=== PATIENT | female | born 1980 | race Caucasian/White ===

== ENCOUNTER 2021-09-09 16:30 | Emergency (ER) | payer OTHER ==
--- NOTE | 2021-09-09 17:04 | XRAY ---
Indication: Pain following fall. Comparison: None 3 view left ankle demonstrates small posterior/plantar heel spurs. No other bony, articular, or soft tissue abnormalities.
--- NOTE | 2021-09-09 17:04 | XRAY ---
Indication: Pain following fall. Comparison: None 3 nonweightbearing views left foot demonstrates small heel spurs. No other bony, articular, or soft tissue abnormalities.
[2021-09-09] MEDS ORDERED: TORAdol 30 mg Injection ONE (17:21)
[2021-09-09] MEDS: TORAdol 30 mg Injection IM ONE (17:22)
[2021-09-09 17:27] VITALS: BP 134/91; PULSE 98; O2SAT 98
--- NOTE | 2021-09-09 17:37 | ERPHSYRPT ---
- History of Present Illness Time Seen by Provider: 09/09/21 16:32 Source: patient Exam Limitations: no limitations Patient Subjective Stated Complaint: Pt stated that she went to step off of a round bar stool that she was standing on and landed on her left foot wrong and injured it Triage Nursing Assessment: Pt was brought to the ER by her boyfriend, hypertensive, rates pain as 7/10, pulses normal, no bruising noted, some swelling, pain radiates from the lateral side of foot to the top of it to the lateral side of the ankle, denies any other injuries Physician History: 41-year-old female presented in the ER with chief complaint of left foot and ankle pain after she fell off of a barstool around 1 AM today and twisted her left ankle/foot. Since then she is having mild to moderate dull aching to sharp pain with ambulation and better with resting with associated swelling in the left lateral ankle and foot. Denies injury anywhere else. Method of Injury: fell, twisted Occurred: this morning Quality: sharpness Severity of Pain-Max: moderate Severity of Pain-Current: moderate Lower Extremities Pain: foot: left, ankle: left Modifying Factors: Improves With: immobilization, rest. 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 - Vaccination Dates Date of 2cond Vaccination (if applicable): 01/09/2021 - Review of Systems Constitutional: No Symptoms Ears, Nose, & Throat: No Symptoms Respiratory: No Symptoms Cardiac: No Symptoms Abdominal/Gastrointestinal: No Symptoms Genitourinary Symptoms: No Symptoms Musculoskeletal: Fall, Injury, Joint Pain, Joint Swelling Skin: No Symptoms Neurological: No Symptoms Psychological: No Symptoms Endocrine: No Symptoms Hematologic/Lymphatic: No Symptoms Immunological/Allergic: No Symptoms - Past Medical History Pertinent Past Medical History: Yes Neurological History: Migraines, Seizures GI Medical History: Crohns Disease Psycho-Social History: Anxiety, Depression Other Medical History: allergies, scoliosis - Past Surgical History Past Surgical History: Yes Female Surgical History: Hysterectomy Other Surgical History: sinus, elbow, right wrist, breast reduction - Social History Smoking Status: Never smoker Exposure to second hand smoke: Yes Drug Use: none Patient Lives Alone: No - Female History Hx Now: No - Nursing Vital Signs Nursing Vital Signs: Initial Vital Signs Temperature 97.3 F 09/09/21 16:31 Pulse Rate 97 H 09/09/21 16:31 Blood Pressure 146/95 09/09/21 16:31 O2 Sat by Pulse Oximetry 96 09/09/21 16:31 Pain Scale Pain Intensity 1 - Physical Exam General Appearance: no apparent distress, alert Eyes, Ears, Nose, Throat Exam: normal ENT inspection Neck Exam: normal inspection Cardiovascular/Respiratory Exam: normal breath sounds, regular rate/rhythm Gastrointestinal/Abdominal Exam: non-tender, soft Back Exam: normal inspection, normal range of motion Legs Exam: bilateral leg: non-tender, normal inspection, normal range of motion, no evidence of injury Knees Exam: bilateral knee: non-tender, normal inspection, normal range of motion Ankle Exam: right ankle: non-tender, normal inspection, normal range of motion, no evidence of injury, left ankle: bone tenderness (Lateral malleolus), pain, soft tissue tenderness, swelling Foot Exam: right foot: non-tender, normal inspection, normal range of motion, no evidence of injury, left foot: pain, soft tissue tenderness (Lateral foot), swelling Neuro/Tendon Exam: normal sensation, normal motor functions, normal tendon functions Mental Status Exam: alert, 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, cooperative Skin Exam: normal color SpO2 Interpretation: normal SpO2: 98 O2 Delivery: Room Air Ordered Tests: Active Orders 24 hr Category Date Time Status ANKLE (3 VIEWS) Stat Exams 09/09/21 16:36 Completed FOOT (MINIMUM 3 VIEWS) Stat Exams 09/09/21 16:37 Completed Medication Summary Discontinued Medications Generic Name Dose Route Start Last Admin Trade Name Freq PRN Reason Stop Dose Admin Ketorolac Tromethamine 30 mg 09/09/21 17:20 09/09/21 17:22 Ketorolac Tromethamine 30 Mg/Ml Inj IM 09/09/21 17:21 30 mg STAT ONE Administration Ketorolac Tromethamine Confirm 09/09/21 17:21 Ketorolac Tromethamine 30 Mg/Ml Inj Administered 09/09/21 17:22 Dose 30 mg .ROUTE .STK-MED ONE - Progress Progress: pain not gone completely Progress Note: 09/09/21 17:35 Given Toradol for symptomatic relief. Ruled out fracture dislocation. I believe she has a ankle sprain, given Aircast, weightbearing as tolerated and outpatient podiatry/Ortho follow-up. Discussed signs symptoms of worsening needing return to ER which she seems understanding. Counseled pt/family regarding: diagnosis, need for follow-up, rad results - Departure Departure Disposition: Home Clinical Impression: Left ankle sprain Qualifiers: Encounter type: initial encounter Involved ligament of ankle: unspecified ligament Qualified Code(s): S93.402A - Sprain of unspecified ligament of left ankle, initial encounter Condition: Critical Care Time: No Referrals: DOCTOR,NO FAMILY [Primary Care Provider] - Follow up/PCP as directed TESS GAMEZ DPM [ACTIVE STAFF] - Follow up/PCP as directed (Call tomorrow for reevaluation) Instructions: Foot Sprain (DC), Ankle Sprain (DC) Additional Instructions: Take Tylenol/ibuprofen as needed. Weightbearing as tolerated. Avoid exertional activities. Apply intermittent ice. Keep it elevated. Follow-up with the specialist for reevaluation. Or difficulty weightbearing. Prescriptions: Ibuprofen 600 mg PO Q6HPRN PRN 10 Days #20 tablet PRN Reason: Pain
== END 2021-09-09 17:59 | disposition home or self-care (01) ==
LOC: ED 16:30
DX: S93.402A Sprain of unspecified ligament of left ankle, initial encounter (principal); W07.XXXA Fall from chair, initial encounter; M79.672 Pain in left foot
CPT/HCPCS: 73610; 73630; 96372; 99283; J1885

== ENCOUNTER 2022-02-07 08:54 | Emergency (ER) | payer OTHER ==
[2022-02-07 09:07] VITALS: PULSE 99; O2SAT 97
[2022-02-07 09:11] VITALS: BP 128/80
--- NOTE | 2022-02-07 09:22 | ERPHSYRPT ---
- History of Present Illness Time Seen by Provider: 02/07/22 09:17 Source: patient Exam Limitations: no limitations Patient Subjective Stated Complaint: Right knee pain Triage Nursing Assessment: Patient ambulated back to ED and transferred self to bed. Patient A+ O X 3. Patient's skin pink, warm and dry. Patient complains of right knee pain after squatting 5 days ago and hearing a "pop". Patient complains of constant aching pain with intermittent sharp pain when ambulating 6/10. No bruising or visible injuries noted. Physician History: Patient complains of right knee pain after squatting 5 days ago and hearing a "pop". Patient complains of constant aching pain with intermittent sharp pain when ambulating 6/10. No bruising or visible injuries noted. Method of Injury: other (while squating) Occurred: just prior to arrival Quality: intermittent Severity of Pain-Max: mild Severity of Pain-Current: mild Lower Extremities Pain: knee: right Modifying Factors: Improves With: rest Associated Symptoms: none Allergies/Adverse Reactions: Penicillins Allergy (Verified 02/07/22 09:01) Sulfa (Sulfonamide Antibiotics) Allergy (Verified 02/07/22 09:01) Home Medications: No Reportable Medications [No Reported Medications] 02/07/22 [History] Hx Tetanus, Diphtheria Vaccination/Date Given: No (2017) Hx Influenza Vaccination/Date Given: Yes Hx Pneumococcal Vaccination/Date Given: No Immunizations Up to Date: Yes Travel Risk - International Travel Have you traveled outside of the country in past 3 weeks: No - Coronavirus Screening Are you exhibiting any of the following symptoms?: No Close contact with a COVID-19 positive Pt in past 14-21 Days: No - Vaccine Status Have you recieved a Covid-19 vaccination: Yes Rn Cvicu: Moderna - Vaccination Dates Date of 2cond Vaccination (if applicable): 01/09/2021 - Review of Systems Constitutional: No Fever, No Chills Eyes: No Symptoms Ears, Nose, & Throat: No Symptoms Respiratory: No Cough, No Dyspnea Cardiac: No Chest Pain, No Edema, No Syncope Abdominal/Gastrointestinal: No Abdominal Pain, No Nausea, No Vomiting, No Diarrhea Genitourinary Symptoms: No Dysuria Musculoskeletal: Other (while squating felt like knee cap got dislocated), No Back Pain, No Neck Pain Skin: No Rash Neurological: No Dizziness, No Focal Weakness, No Sensory Changes Psychological: No Symptoms Endocrine: No Symptoms All Other Systems: Reviewed and Negative - Past Medical History Pertinent Past Medical History: Yes Neurological History: Migraines, Seizures Cardiac History: No Pertinent History Respiratory History: Asthma Endocrine Medical History: No Pertinent History Musculoskeletal History: Arthritis GI Medical History: Crohns Disease Psycho-Social History: Anxiety, Depression Other Medical History: allergies, scoliosis. 2018 was last seizure - Past Surgical History Past Surgical History: Yes Female Surgical History: Hysterectomy Other Surgical History: sinus, elbow, right wrist, breast reduction - Social History Smoking Status: Never smoker Exposure to second hand smoke: No Drug Use: none Patient Lives Alone: No - Female History Hx Last Menstrual Period: hysterectomy Hx Now: No - Nursing Vital Signs Nursing Vital Signs: Initial Vital Signs Temperature 96.2 F 02/07/22 09:02 Pulse Rate 99 H 02/07/22 09:02 Respiratory Rate 18 02/07/22 09:02 Blood Pressure 128/80 02/07/22 09:02 O2 Sat by Pulse Oximetry 97 02/07/22 09:02 Pain Scale Pain Intensity 6 - Physical Exam General Appearance: alert Eyes, Ears, Nose, Throat Exam: moist mucous membranes Neck Exam: non-tender, supple Cardiovascular/Respiratory Exam: chest non-tender, normal breath sounds, regular rate/rhythm, no respiratory distress Gastrointestinal/Abdominal Exam: non-tender, guarding Back Exam: normal inspection, No vertebral tenderness Hips Exam: bilateral: non-tender Legs Exam: bilateral leg: non-tender Knees Exam: right knee: soft tissue tenderness, bilateral knee: non-tender Ankle Exam: bilateral ankle: non-tender Foot Exam: bilateral foot: non-tender DTR - Lower Extremities Exam: knee (R): 2+, knee (L): 2+, ankle (R): 2+, ankle (L): 2+ Neuro/Tendon Exam: normal sensation, normal motor functions Mental Status Exam: alert, 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, cooperative Skin Exam: normal color, warm, dry SpO2 Interpretation: normal SpO2: 97 O2 Delivery: Room Air - Course Nursing assessment & vital signs reviewed: Yes - Radiology Exams Knee X-ray Interpretation: Reviewed by me, Negative, No Fracture, No Subluxation Ordered Tests: Active Orders 24 hr Category Date Time Status KNEE (3 VIEWS) Stat Exams 02/07/22 09:00 Taken - Progress Progress: improved, pain not gone completely Counseled pt/family regarding: diagnosis, need for follow-up, rad results - Departure Departure Disposition: Home Clinical Impression: Patellar clunk syndrome of right knee Patellar luxation Qualifiers: Encounter type: initial encounter Laterality: right Qualified Code(s): S83.004A - Unspecified dislocation of right patella, initial encounter Condition: Stable Critical Care Time: No Referrals: LUC HARTMANN FNP [NON-STAFF Y W/O PRIVILEGES] - Follow up/PCP as directed Instructions: Knee Pain (DC) Additional Instructions: Discharge/Care Plan KALE SOLOMON was seen on 02/07/22 in the Emergency Room. The patient was counseled regarding Diagnosis,Lab results, Imaging studies, need for follow up and when to return to the Emergency Room. Prescriptions given: Discharge Note I have spoken with the patient and/or caregivers. I have explained the patient's condition, diagnosis and treatment plan based on the information available to me at this time. I have answered the patient's and/or caregiver's questions and addressed any concerns. The patient and/or caregivers have as good understanding of the patient's diagnosis, condition and treatment plan as can be expected at this point. The vital signs have been stable. The patient's condition is stable and appropriate for discharge from the emergency department. The patient will pursue further outpatient evaluation with the primary care physician or other designated or consulting physician as outlined in the discharge instructions. The patient and/or caregivers are agreeable to this plan of care and follow-up instructions have been explained in detail. The patient and/or caregivers have received these instruction. The patient/and or caregivers are aware that any significant change in condition or worsening of symptoms should prompt an immediate return to this or the closest emergency department or call 911. KALE SOLOMON was seen on 02/07/22 n the Emergency Room. At that time you were treated for an emergent condition, during your visit Laboratory, Radiology and/or other procedures may have been ordered. It is very important that you follow-up with your Primary Care Physician MARCO MFCARLANE within the next 24- 48 hours to review your Emergency Room visit and the final results of testing that was ordered. Some test results such as Urine Cultures, Blood Cultures, and other cultures if ordered will not be finalized for 24-48 hours. If you do not have a Primary Care Provider please call the medical records department at [phone] ext [phone] to obtain a copy of your results or you may sign into our patient portal to obtain these results by visiting us @ [email or web address] and completing the following steps: 1. Click on the Patient Portal link 2. Click the Patient Self Enrollment Link to complete the enrollment form and entering your 3. Once the enrollment form is completed you will receive an email with a temporary ID and password at the email address you provided. 4. Next choose a user name and password. Your user name must be at least 4 characters long and your password must be at least 4 characters long. 5. Choose a security question from the list and provide your answer to the question. If you already have signed into the Health Portal you may access your Health Care Information 12/04 by the following steps: 1. Login to our website @ [email or web address] 2. Enter your original user name and password. FAQS The [facility] Portal is an online tool that contains your Lab Results, Radiology Reports, Visit History, Discharge Instructions and Health Summary Lab and Radiology Results will not be available for 72 hours on the portal. The Portal is a secure site, passwords are encryted and URLs are re-written so they cannot be copied and pasted. You and authorized family members are the only ones who can access your Portal. Also there is a timeout feature that protects your information if you leave the Portal page open. If you have technical difficulty please use the Contact Us link on the page this will allow you to submit any questions you have regarding the Portal or you may contact the Medical Record Department at [phone]. Please take Tylenol 500 mg and ibuprofen 400 mg 3 times a day for next 2 to 3 days for the pain. Please wear knee brace over right knee for the next 2 to 3 days. If your symptoms get worse or if you feel your knee is giving out call your primary care physician for further work-up.
--- NOTE | 2022-02-07 19:21 | XRAY ---
Indication: Pain and grinding. "Pop in knee" 5 days ago. Comparison: None 3 view right knee demonstrates minimal medial joint space narrowing and small nonspecific effusion. No other bony, articular, or soft tissue abnormalities.
== END 2022-02-07 09:30 | disposition home or self-care (01) ==
LOC: ED 08:54
DX: M25.861 Other specified joint disorders, right knee (principal); S83.004A Unspecified dislocation of right patella, initial encounter; X50.0XXA Overexertion from strenuous movement or load, initial encounter; M25.561 Pain in right knee
CPT/HCPCS: 73562; 99283

== ENCOUNTER 2022-04-14 02:27 | Emergency (ER) | payer OTHER ==
--- NOTE | 2022-04-14 02:31 | ERPHSYRPT ---
- History of Present Illness Time Seen by Provider: 04/14/22 02:31 Source: patient Exam Limitations: no limitations Physician History: This is a 41-year-old white female who has asthma and has an inhaler at home and presents with a cough that has been present for approximately 5 days. However, this morning, whenever she is at work malfunctioned and dust particles went into the air and the patient had coughing episode. She states that she has had a productive cough recently. She denies fever. She has no chest pain. She had negative COVID test on prior to this evaluation. Her employer requires her to be evaluated, received a note from work and also repeat a COVID test. Timing/Duration: today Activities at Onset: none Severity of Dyspnea-Max: moderate Severity of Dyspnea-Current: mild Possible Cause: occasional episodes, irritant gases exposure Modifying Factors: Improves With: coughing Associated Symptoms: cough, No chest pain/discomfort, No wheezing, No hemoptysis Allergies/Adverse Reactions: Penicillins Allergy (Verified 04/14/22 02:49) Sulfa (Sulfonamide Antibiotics) Allergy (Verified 04/14/22 02:49) Hx Tetanus, Diphtheria Vaccination/Date Given: No (2017) Hx Influenza Vaccination/Date Given: Yes Hx Pneumococcal Vaccination/Date Given: No Travel Risk - International Travel Have you traveled outside of the country in past 3 weeks: No - Coronavirus Screening Are you exhibiting any of the following symptoms?: No Symptoms: Cough: New Onset - Vaccine Status Have you recieved a Covid-19 vaccination: Yes 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 - Vaccination Dates Date of 2cond Vaccination (if applicable): 01/09/2021 - Review of Systems Constitutional: No Symptoms Eyes: No Symptoms Ears, Nose, & Throat: No Symptoms Respiratory: Cough Cardiac: No Symptoms Abdominal/Gastrointestinal: No Symptoms Genitourinary Symptoms: No Symptoms Musculoskeletal: No Symptoms Skin: No Symptoms Neurological: No Symptoms Psychological: No Symptoms Endocrine: No Symptoms Hematologic/Lymphatic: No Symptoms Immunological/Allergic: No Symptoms All Other Systems: Reviewed and Negative - Past Medical History Pertinent Past Medical History: Yes Neurological History: Migraines, Seizures Cardiac History: No Pertinent History Respiratory History: Asthma Endocrine Medical History: No Pertinent History Musculoskeletal History: Arthritis GI Medical History: Crohns Disease Psycho-Social History: Anxiety, Depression Other Medical History: allergies, scoliosis. 2018 was last seizure - Past Surgical History Past Surgical History: Yes Female Surgical History: Hysterectomy Other Surgical History: sinus, elbow, right wrist, breast reduction - Social History Smoking Status: Never smoker Exposure to second hand smoke: No Drug Use: none Patient Lives Alone: No - Nursing Vital Signs Nursing Vital Signs: Initial Vital Signs Temperature 97.8 F 04/14/22 02:35 Pulse Rate 92 H 04/14/22 02:35 Respiratory Rate 18 04/14/22 02:35 Blood Pressure 117/79 04/14/22 02:35 O2 Sat by Pulse Oximetry 95 04/14/22 02:35 Pain Scale Pain Intensity 4 - Physical Exam General Appearance: no apparent distress, alert, anxiety Eye Exam: PERRL/EOMI, eyes nml inspection Ears, Nose, Throat Exam: hearing grossly normal, normal ENT inspection, normal pharynx Neck Exam: normal inspection, non-tender, supple, full range of motion Respiratory Exam: normal breath sounds, lungs clear, airway intact, No chest tenderness, No respiratory distress Cardiovascular/Chest Exam: normal heart sounds, regular rate/rhythm Abdominal/Gastrointestinal Exam: soft, normal bowel sounds, No tenderness Rectal Exam: not done Extremity Exam: non-tender, normal range of motion, normal inspection, normal capillary refill, no calf tenderness, no pedal edema, pelvis stable Neurologic Exam: alert, 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, cooperative, 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 04/14/22 03:03 Medical decision making: This patient has had a cough for 5 days prior to this episode this morning. She states that her cough is productive. She does have albuterol inhaler at home. We will give her a dose of Solu-Medrol here in the emergency department and if not allergic, will give her an intramuscular dose of Rocephin followed by outpatient steroids and Z-Gerald. We will perform a COVID test prior to her discharge. Blood Culture(s) Obtained: No Antibiotics given: Yes Counseled pt/family regarding: lab results, diagnosis, need for follow-up, rad results - Departure Departure Disposition: Home Clinical Impression: Bronchitis due to chemical, Cough productive of purulent sputum Condition: Stable Critical Care Time: No Referrals: MARCO MCFARLANE [Primary Care Provider] - Follow up/PCP as directed Additional Instructions: Drink plenty of fluids. Use your inhaler every 4 hours while awake for the next 48 hours. Take your medication as prescribed. Follow-up with your primary prescribing provider for further evaluation and management. Prescriptions: Prednisone 10 mg [Deltasone 10 mg] 10 mg PO TID #12 tablet Azithromycin 250 mg [Zithromax 250 MG TABLET] 250 mg PO ZPACK #6 tablet
[2022-04-14] MEDS ORDERED: Rocephin 1000 MG INJ IM ONE (03:07)
[2022-04-14] MEDS ORDERED: solu-MEDROL 125 MG, Sterile H2O 10 ml 2 ML IM ONE ×2 (03:07)
[2022-04-14] MEDS ORDERED: Rocephin 1000 MG INJ ONE (03:24)
[2022-04-14] MEDS ORDERED: solu-MEDROL ONE (03:24)
[2022-04-14] MEDS ORDERED: Sterile H2O 10 ml IJ ONE (03:24)
[2022-04-14] MEDS ORDERED: XYLOCAINE 1% HCL 20 ML MDV ONE (03:25)
[2022-04-14 03:35] VITALS: O2SAT 94
[2022-04-14 03:54] LABS: INFLUENZA A NEGATIVE (NEGATIVE); INFLUENZA B NEGATIVE (NEGATIVE); RESPIRATORY SYNCTIAL VIRUS NEGATIVE (Negative); SARS-CoV-2 Xpert Express NEGATIVE (NEGATIVE)
[2022-04-14 04:31] VITALS: BP 120/85; PULSE 79
--- NOTE | 2022-04-15 00:22 | XRAY ---
Exam: AP upright portable chest film from 04/14/2022. Comparison: AP upright portable chest film from 04/08/2022. Indication: Cough; dust exposure at work. Findings: The heart size and contour are normal. The kami and mediastinal structures appear unremarkable. The lungs are well inflated. No air space infiltrates, vascular congestion, pneumothorax, or pleural fluid is seen. No acute osseous process is seen. Impression: 1. No air space infiltrates or other acute cardiopulmonary disease is seen, no change from 04/08/2022.
== END 2022-04-14 04:42 | disposition home or self-care (01) ==
LOC: ED 02:27
DX: J68.0 Bronchitis and pneumonitis due to chemicals, gases, fumes and vapors (principal); R05.8 Other specified cough; Z79.52 Long term (current) use of systemic steroids
CPT/HCPCS: 0241U; 71045; 96372; 99283; J0696; J2930

== ENCOUNTER 2022-05-26 15:19 | Emergency (ER) | payer OTHER ==
[2022-05-26] MEDS ORDERED: Sodium Chloride 0.9% 1000 ML 1,000 ML IV SCH (16:00)
[2022-05-26 16:19] LABS: Absolute Neutrophil Ct (ANC) 4.68 x10^3/uL (1.4-6.9); Basophil (Absolute #) 0.05 x10^3/uL (0-0.4); Eosinophil % 1.1 % (0.00-5.0); Eosinophil (Absolute #) 0.09 x10^3/uL (0-0.5); Hematocrit 39.5 % (35-47); Hemoglobin 12.4 g/dL (12.0-16.0); Lymphocyte (Absolute #) 3.01 x10^3/uL (1.0-4.6); Lymphocytes % 35.4 % (24.0-44.0); Mean Cell Volume 94.5 fL (78-100); Mean Corpuscular Hemoglobin 29.7 pg (26-32); Mean Corpuscular Hgb Concent. 31.4 g/dL (32-36); Monocyte (Absolute #) 0.62 x10^3/uL (0.0-1.3); Monocytes % 7.3 % (0.0-12.0); Platelet Count 296 x10^3/uL (150-450); Red Blood Count 4.18 x10^6/uL (4.1-5.4); Red Cell Distribution Width 13.7 % (11.5-14.0); White Blood Count 8.5 x10^3/uL (4.0-10.5)
[2022-05-26] MEDS ORDERED: Sodium Chloride 0.9% 1000 ML 1,000 ML ONE (16:21)
--- NOTE | 2022-05-26 16:23 | XRAY ---
Indication: Dizziness. Low blood pressure. Current blood pressure medication. Multiple contiguous axial images obtained through the head without contrast. Comparison: None Normal appearing brain parenchyma, ventricles, and bony calvarium. Visualized paranasal sinuses and mastoid air cells are clear. Impression: Normal CT head without contrast exam.
[2022-05-26 16:30] LABS: Appearance CLEAR (CLEAR); Bilirubin NEGATIVE (NEGATIVE); Dipstick done @ ? MAIN LAB; Glucose NEGATIVE (NEGATIVE); Ketones NEGATIVE (NEGATIVE); Nitrite NEGATIVE (NEGATIVE); Protein,Urine Dip NEGATIVE (Negative); RBC NEGATIVE Ery/ul (0-5); Specific Gravity 1.015 (1.005-1.025); Urobilinogen 0.2 mg/dL (0-1)
[2022-05-26 16:34] LABS: ALBUMIN 4.1 g/dL (3.5-5.0); ALKALINE PHOSPHATASE 93 U/L (38-126); ANION GAP 10.8 MEQ/L (5-15); BLOOD UREA NITROGEN 14 mg/dL (7-17); CHLORIDE 107 mmol/L (98-107); Calcium 8.2 mg/dL (8.4-10.2); Carbon Dioxide 27 mmol/L (22-30); Creatinine 1 0.54 mg/dL (0.52-1.04); EST GLOMERULAR FILTRATION RATE > 60.0 ML/MIN; Potassium 4.6 mmol/L (3.5-5.1); SGOT/AST 41 U/L (14-36); SGPT/ALT 21 U/L (0-35); SODIUM 140 mmol/L (137-145); Total Protein 7.5 g/dL (6.3-8.2)
[2022-05-26 16:36] LABS: Glucose 101 mg/dL (74-106)
[2022-05-26 16:38] LABS: Bacteria RARE /HPF (NEGATIVE); Epithelial Cells RARE /HPF (FEW); Mucus SLIGHT /HPF (NEGATIVE); WBC 0-2 /HPF (0-5)
--- NOTE | 2022-05-26 16:39 | ERPHSYRPT ---
- History of Present Illness Time Seen by Provider: 05/26/22 15:40 Source: patient Patient Subjective Stated Complaint: Hypotension Triage Nursing Assessment: Patient ambulated back to ED and transferred self to bed. Patient A+O X3. Patient's skin pink, warm and dry. Patient complains of hypotension. Patient states she was laying on the bed watching a movie when she went to get up to use restroom and felt dizzy and that she was going to "Pass out". Patient took blood pressure and it was 91/56 and called PCP and was told to come to ER. Patient complains of dizziness, nausea and headache. Physician History: Patient a 41-year-old female presents to emergency department for evaluation of dizziness. Pay states she was at home lying down watching TV. Patient abruptly stood up out of her bed and became dizzy. Patient felt as though she was going to pass out. Patient checked her blood pressure was 91/56. Patient became concerned. She called with primary care doctor advised her to come to our ED. Patient states she still feels dizzy. No chest pain. No nausea or vomiting. No shortness of breath. Symptoms are mild in intensity. No specific worsening improving factors. Patient voices no other complaints or concerns at this time. Portions of this note were created with voice recognition technology. There may be grammatical, spelling, punctuation or sound alike errors Timing/Duration: today Severity: mild Modifying Factors: Improves With: nothing Associated Symptoms: denies symptoms Allergies/Adverse Reactions: Penicillins Allergy (Verified 05/26/22 15:30) Sulfa (Sulfonamide Antibiotics) Allergy (Verified 05/26/22 15:30) Hx Tetanus, Diphtheria Vaccination/Date Given: No (2017) Hx Influenza Vaccination/Date Given: Yes Hx Pneumococcal Vaccination/Date Given: No Immunizations Up to Date: Yes Travel Risk - International Travel Have you traveled outside of the country in past 3 weeks: No - Coronavirus Screening Are you exhibiting any of the following symptoms?: No Close contact with a COVID-19 positive Pt in past 14-21 Days: No - Vaccine Status Have you recieved a Covid-19 vaccination: Yes Manufacturer Representative: Moderna - Vaccination Dates Date of 2cond Vaccination (if applicable): 01/09/2021 - Review of Systems Constitutional: No Symptoms, No Fever, No Chills Eyes: No Symptoms Ears, Nose, & Throat: No Symptoms Respiratory: No Symptoms, No Cough, No Dyspnea Cardiac: No Symptoms, No Chest Pain, No Edema, No Syncope Abdominal/Gastrointestinal: No Symptoms, No Abdominal Pain, No Nausea, No Vomiting, No Diarrhea Genitourinary Symptoms: No Symptoms, No Dysuria Musculoskeletal: No Symptoms, No Back Pain, No Neck Pain Skin: No Symptoms, No Rash Neurological: No Symptoms, No Dizziness, No Focal Weakness, No Sensory Changes Psychological: No Symptoms Endocrine: No Symptoms Hematologic/Lymphatic: No Symptoms Immunological/Allergic: No Symptoms All Other Systems: Reviewed and Negative - Past Medical History Pertinent Past Medical History: Yes Neurological History: Migraines, Seizures Cardiac History: No Pertinent History Respiratory History: Asthma Endocrine Medical History: No Pertinent History Musculoskeletal History: Arthritis GI Medical History: Crohns Disease Psycho-Social History: Anxiety, Depression Other Medical History: allergies, scoliosis. 2018 was last seizure - Past Surgical History Past Surgical History: Yes Female Surgical History: Hysterectomy Other Surgical History: sinus, elbow, right wrist, breast reduction - Social History Smoking Status: Never smoker Exposure to second hand smoke: No Drug Use: none Patient Lives Alone: No - Female History Hx Last Menstrual Period: 2007 hysterectomy Hx Now: No - Nursing Vital Signs Nursing Vital Signs: Initial Vital Signs Temperature 97.6 F 05/26/22 15:32 Pulse Rate 83 05/26/22 15:32 Respiratory Rate 18 05/26/22 15:32 Blood Pressure 133/89 05/26/22 15:32 O2 Sat by Pulse Oximetry 98 05/26/22 15:32 Pain Scale Pain Intensity 0 - Physical Exam General Appearance: no apparent distress, alert Eye Exam: PERRL/EOMI, eyes nml inspection Ears, Nose, Throat Exam: normal ENT inspection, TMs normal, pharynx normal, moist mucous membranes Neck Exam: normal inspection, non-tender, supple, full range of motion Respiratory Exam: normal breath sounds, lungs clear, airway intact, No respiratory distress Cardiovascular Exam: regular rate/rhythm, normal heart sounds, normal peripheral pulses Gastrointestinal/Abdomen Exam: soft, normal bowel sounds, No tenderness, No mass Back Exam: normal inspection, normal range of motion, No CVA tenderness, No vertebral tenderness Extremity Exam: normal inspection, normal range of motion, pelvis stable Neurologic Exam: alert, 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, cooperative, normal mood/affect, nml cerebellar function, nml station & gait, sensation nml, No motor deficits Skin Exam: normal color, warm, dry, No rash Lymphatic Exam: No adenopathy SpO2 Interpretation: normal SpO2: 96 O2 Delivery: Room Air - Course Nursing assessment & vital signs reviewed: Yes EKG Interpreted by Me: RATE (81), Sinus Rhythm, NORMAL AXIS, NORMAL INTERVALS - CT Exams Head CT Interpretation: Tele-radiologist Report (CT head negative for acute intracranial pathology.) Ordered Tests: Active Orders 24 hr Category Date Time Status [employer] STAT Care 05/26/22 15:57 Active EKG-ER Only STAT Care 05/26/22 15:56 Active IV Insertion STAT Care 05/26/22 15:56 Active Pulse Oximetry (ED) STAT Care 05/26/22 15:56 Active Tele-Health Consult ROUTINE Cons 05/26/22 17:20 Active HEAD WITHOUT CONTRAST [CT] Stat Exams 05/26/22 15:59 Completed CBC W DIFF Stat Lab 05/26/22 16:10 Completed CMP Stat Lab 05/26/22 16:10 Completed HCG,QUALITATIVE URINE Stat Lab 05/26/22 16:06 Completed TROPONIN Q4H Lab 05/26/22 16:10 Completed TROPONIN Q4H Lab 05/26/22 20:00 Ordered TROPONIN Q4H Lab 05/27/22 00:00 Ordered UA W/RFX CULTURE Stat Lab 05/26/22 16:07 Completed Medication Summary Generic Name Dose Route Start Last Admin Trade Name Freq PRN Reason Stop Dose Admin Sodium Chloride 1,000 mls @ 75 mls/hr 05/26/22 16:00 05/26/22 16:22 Sodium Chloride 0.9% 1000 Ml IV 06/25/22 15:59 75 mls/hr .[id number] [facility] Administration Lab/Rad Data: Laboratory Result Diagrams 05/26/22 16:10 05/26/22 16:10 Laboratory Results 05/26/22 05/26/22 05/26/22 Range/Units 16:10 16:10 16:10 WBC 8.5 (4.0-10.5) x10^3/uL RBC 4.18 (4.1-5.4) x10^6/uL Hgb 12.4 (12.0-16.0) g/dL Hct 39.5 (35-47) % MCV 94.5 (78-100) fL MCH 29.7 (26-32) pg MCHC 31.4 L (32-36) g/dL RDW 13.7 (11.5-14.0) % Plt Count 296 (150-450) x10^3/uL MPV 9.0 (7.5-11.0) fL Gran % 55.0 (36.0-66.0) % Immature Gran % (Auto) 0.6 H (0.00-0.4) % Nucleat RBC Rel Count 0.0 (0.00-0.1) % Eos # (Auto) 0.09 (0-0.5) x10^3/uL Immature Gran # (Auto) 0.05 H (0.00-0.03) x10^3u/L Absolute Lymphs (auto) 3.01 (1.0-4.6) x10^3/uL Absolute Monos (auto) 0.62 (0.0-1.3) x10^3/uL Absolute Nucleated RBC 0.00 (0.00-0.01) x10^3u/L Lymphocytes % 35.4 (24.0-44.0) % Monocytes % 7.3 (0.0-12.0) % Eosinophils % 1.1 (0.00-5.0) % Basophils % 0.6 (0.0-0.4) % Absolute Granulocytes 4.68 (1.4-6.9) x10^3/uL Basophils # 0.05 (0-0.4) x10^3/uL Sodium 140 (137-145) mmol/L Potassium 4.6 (3.5-5.1) mmol/L Chloride 107 (98-107) mmol/L Carbon Dioxide 27 (22-30) mmol/L Anion Gap 10.8 (5-15) MEQ/L BUN 14 (7-17) mg/dL Creatinine 0.54 (0.52-1.04) mg/dL Estimated GFR > 60.0 ML/MIN Glucose 101 (74-106) mg/dL Calcium 8.2 L (8.4-10.2) mg/dL Total Bilirubin 0.60 (0.2-1.3) mg/dL AST 41 H (14-36) U/L ALT 21 (0-35) U/L Alkaline Phosphatase 93 (38-126) U/L Troponin I < 0.012 (0.000-0.034) ng/mL Serum Total Protein 7.5 (6.3-8.2) g/dL Albumin 4.1 (3.5-5.0) g/dL Urinalys Dipstick Clnc Urine Color (YELLOW) Urine Appearance (CLEAR) Urine pH (5-6) Ur Specific [place] (1.005-1.025) POC Urine Protein Conf (Negative) Urine Ketones (NEGATIVE) Urine Nitrite (NEGATIVE) Urine Bilirubin (NEGATIVE) Urine Urobilinogen (0-1) mg/dL Urine Leukocytes (NEGATIVE) Urine WBC (Auto) (0-5) /HPF Urine RBC (Auto) U Epithel Cells (Auto) (FEW) /HPF Urine Bacteria (Auto) (NEGATIVE) /HPF Urine RBC (0-5) Eduardo/ul Urine Mucus (Auto) (NEGATIVE) /HPF Ur Culture Indicated? Urine Glucose (NEGATIVE) mg/dL Urine HCG, Qual (Negative) 05/26/22 05/26/22 Range/Units 16:07 16:06 WBC (4.0-10.5) x10^3/uL RBC (4.1-5.4) x10^6/uL Hgb (12.0-16.0) g/dL Hct (35-47) % MCV (78-100) fL MCH (26-32) pg MCHC (32-36) g/dL RDW (11.5-14.0) % Plt Count (150-450) x10^3/uL MPV (7.5-11.0) fL Gran % (36.0-66.0) % Immature Gran % (Auto) (0.00-0.4) % Nucleat RBC Rel Count (0.00-0.1) % Eos # (Auto) (0-0.5) x10^3/uL Immature Gran # (Auto) (0.00-0.03) x10^3u/L Absolute Lymphs (auto) (1.0-4.6) x10^3/uL Absolute Monos (auto) (0.0-1.3) x10^3/uL Absolute Nucleated RBC (0.00-0.01) x10^3u/L Lymphocytes % (24.0-44.0) % Monocytes % (0.0-12.0) % Eosinophils % (0.00-5.0) % Basophils % (0.0-0.4) % Absolute Granulocytes (1.4-6.9) x10^3/uL Basophils # (0-0.4) x10^3/uL Sodium (137-145) mmol/L Potassium (3.5-5.1) mmol/L Chloride (98-107) mmol/L Carbon Dioxide (22-30) mmol/L Anion Gap (5-15) MEQ/L BUN (7-17) mg/dL Creatinine (0.52-1.04) mg/dL Estimated GFR ML/MIN Glucose (74-106) mg/dL Calcium (8.4-10.2) mg/dL Total Bilirubin (0.2-1.3) mg/dL AST (14-36) U/L ALT (0-35) U/L Alkaline Phosphatase (38-126) U/L Troponin I (0.000-0.034) ng/mL Serum Total Protein (6.3-8.2) g/dL Albumin (3.5-5.0) g/dL Urinalys Dipstick Clnc MAIN LAB Urine Color YELLOW (YELLOW) Urine Appearance CLEAR (CLEAR) Urine pH 7.0 (5-6) Ur Specific [place] 1.015 (1.005-1.025) POC Urine Protein Conf NEGATIVE (Negative) Urine Ketones NEGATIVE (NEGATIVE) Urine Nitrite NEGATIVE (NEGATIVE) Urine Bilirubin NEGATIVE (NEGATIVE) Urine Urobilinogen 0.2 (0-1) mg/dL Urine Leukocytes NEGATIVE (NEGATIVE) Urine WBC (Auto) 0-2 (0-5) /HPF Urine RBC (Auto) Not Reportable U Epithel Cells (Auto) RARE (FEW) /HPF Urine Bacteria (Auto) RARE (NEGATIVE) /HPF Urine RBC NEGATIVE (0-5) Eduardo/ul Urine Mucus (Auto) SLIGHT (NEGATIVE) /HPF Ur Culture Indicated? NO Urine Glucose NEGATIVE (NEGATIVE) mg/dL Urine HCG, Qual NEGATIVE (Negative) - Progress Progress: improved Progress Note: Patient currently feels well. Patient states she stood up quickly became dizzy check her blood pressure and it was somewhat low. Patient's symptoms appear to be consistent with an episode of orthostatic hypotension. IV fluids infused. She voices no other complaints or concerns at this time. Neurologic exam is normal. CT head negative. Telemetry neuro exam completed. Teleneurology advises discharge. No negation for further work-up at this time. Will discharge home. Patient's creatinine is somewhat elevated. Patient received a bolus of fluids in our ED. Patient requesting discharge. Patient agrees to follow-up with her primary care doctor within 48 hours for evaluation. Portions of this note were created with voice recognition technology. There may be grammatical, spelling, punctuation or sound alike errors 05/26/22 18:01 Counseled pt/family regarding: lab results, diagnosis, rad results - Departure Departure Disposition: Home Clinical Impression: Dizziness, Orthostatic hypotension Condition: Stable Critical Care Time: No Referrals: MARCO MCFARLANE [Primary Care Provider] - Follow up/PCP as directed Additional Instructions: Discharge/Care Plan JUANITOKALE MIGUEL was seen on 05/26/22 in the Emergency Room. The patient was counseled regarding Diagnosis,Lab results, Imaging studies, need for follow up and when to return to the Emergency Room. Prescriptions given: Discharge Note I have spoken with the patient and/or caregivers. I have explained the patient's condition, diagnosis and treatment plan based on the information available to me at this time. I have answered the patient's and/or caregiver's questions and addressed any concerns. The patient and/or caregivers have as good understanding of the patient's diagnosis, condition and treatment plan as can be expected at this point. The vital signs have been stable. The patient's condition is stable and appropriate for discharge from the emergency department. The patient will pursue further outpatient evaluation with the primary care physician or other designated or consulting physician as outlined in the discharge instructions. The patient and/or caregivers are agreeable to this plan of care and follow-up instructions have been explained in detail. The patient and/or caregivers have received these instruction. The patient/and or caregivers are aware that any significant change in condition or worsening of symptoms should prompt an immediate return to this or the closest emergency department or call 911.
[2022-05-26 16:51] LABS: Urine Cultured Indicated? NO
[2022-05-26 18:19] VITALS: BP 114/77; PULSE 76; O2SAT 99
== END 2022-05-26 18:20 | disposition home or self-care (01) ==
LOC: ED 15:19
DX: I95.1 Orthostatic hypotension (principal); R42 Dizziness and giddiness
CPT/HCPCS: 36000; 36415; 70450; 80053; 81015; 81025; 84484; 85025; 93005; 93041; 94760; 96360; 96361; 99284

== ENCOUNTER 2023-11-02 01:48 | Emergency (ER) | payer OTHER ==
[2023-11-02 02:01] VITALS: TEMP 96.7
[2023-11-02 02:11] LABS: HCG URINE TEST NEGATIVE (NEGATIVE)
[2023-11-02 02:14] LABS: Appearance Clear (Clear); Bacteria Rare /HPF (None Seen); Bilirubin Negative (Negative); Blood Negative (Negative); Epithelial Cells Moderate /HPF (None Seen); Glucose, Urine Negative (Negative); Hyaline Casts NONE SEEN /LPF (0-2); Ketones Negative (Negative); Leukocyte Esterase Trace (Negative); Nitrite Negative (Negative); Ph 6.5 (4.6-8.0); Protein,Urine Dip Negative (Negative); Specific Gravity 1.025 (1.005-1.030); Urobilinogen 0.2 mg/dL (0.2)
[2023-11-02 02:20] LABS: ADD URINE CULTURE? NO (NO)
[2023-11-02] MEDS ORDERED: TORAdol 30 mg Injection ONE (02:27)
[2023-11-02] MEDS: TORAdol 30 mg Injection IM ONE (02:30)
--- NOTE | 2023-11-02 02:31 | ERPHSYRPT ---
- History of Present Illness Time Seen by Provider: 11/02/23 02:20 Source: patient Patient Subjective Stated Complaint: back pain from neck down to an inch from my tailbone Triage Nursing Assessment: pt ambulated into ER without difficulty. Pt alert and oriented x4, cooperative. Pt c/o back pain which starts at the neck area and radiates down the spine to approx an inch from her tailbone. Pt has hx of scoliosis. Pt states, "I have to lift 50 pound boxes at my job about every 5 minutes as I work at [employer]". Pt works 12 hour shifts. Physician History: 43yo f presents for 1d progressively worsening back pain. 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 Pt states the pain starts in her lower cervical spine and radiates down her spine to her lower lumbar region. Pt reports some paraspinal muscle tenderness but most of her pain is located over the spine. Pt states she has hx of scoliosis and a seizure disorder for which she follows w/ a neurologist in [place], [place]. Pt reports taking advil yesterday w/ minimal relief, has not taken anything for pain today. Pt denies any numbness/tingling in the upper or lower extremities, denies any weakness in the extremities, denies any loss of bowel or bladder function. Pt denies cp, soa, n/v/abdominal pain, dysuria, constipation. Timing/Duration: yesterday (1d), gradual onset Method of Injury: lifting (repetitive lifting 35-50lbs) Quality: sharp Back Pain Location: C-spine, T-spine, lumbar spine Severity of Pain-Max: moderate Severity of Pain-Current: moderate Modifying Factors: Improves With: movement. Worsens With: cold therapy, pain medication Associated Symptoms: lower back pain, No fever, No chills, No sweating, No urinary incontinence, No loss of bowel control, No constipation, No nausea, No vomiting, No numbness in legs/feet, No weakness, No sensory/motor loss, No tingling in legs/feet Previous symptoms: same symptoms as today Body Map: 1 - midline spine TTP from c6-L1 Allergies/Adverse Reactions: Penicillins Allergy (Verified 11/02/23 02:13) Sulfa (Sulfonamide Antibiotics) Allergy (Verified 11/02/23 02:13) Home Medications: Fexofenadine HCl [Kassi Allergy] 1 tab PO DAILY 11/02/23 [History] Levetiracetam [Keppra] 1,500 mg PO BID 11/02/23 [History] Montelukast Sodium 10 mg [Singulair 10 MG] 10 mg PO DAILY 11/02/23 [History] risperiDONE [Risperidone] 1 mg PO BID 11/02/23 [History] Hx Tetanus, Diphtheria Vaccination/Date Given: Yes Hx Influenza Vaccination/Date Given: Yes Hx Pneumococcal Vaccination/Date Given: No Immunizations Up to Date: Yes Travel Risk - International Travel Have you traveled outside of the country in past 3 weeks: No - Coronavirus Screening Are you exhibiting any of the following symptoms?: No Close contact with a COVID-19 positive Pt in past 14-21 Days: No - Vaccine Status Have you recieved a Covid-19 vaccination: Yes Security Professionals: Moderna - Vaccination Dates Date of 2cond Vaccination (if applicable): . - Review of Systems Constitutional: No Symptoms Respiratory: No Symptoms Cardiac: No Symptoms Abdominal/Gastrointestinal: No Symptoms Genitourinary Symptoms: No Symptoms Musculoskeletal: Back Pain, Neck Pain, No Fall, No Injury Neurological: No Focal Weakness, No Gait Changes, No Sensory Changes - Past Medical History Pertinent Past Medical History: Yes Neurological History: Migraines, Seizures Cardiac History: No Pertinent History Respiratory History: Asthma Endocrine Medical History: No Pertinent History Musculoskeletal History: Arthritis GI Medical History: Crohns Disease Psycho-Social History: Anxiety, Attention Deficit Disorder, Depression Other Medical History: allergies, scoliosis. 2018 was last seizure - Past Surgical History Past Surgical History: Yes Female Surgical History: Hysterectomy Other Surgical History: sinus, left elbow, right wrist, breast reduction - Social History Smoking Status: Never smoker Exposure to second hand smoke: No Drug Use: none Patient Lives Alone: No - Female History Hx Now: No - Nursing Vital Signs Nursing Vital Signs: Initial Vital Signs Temperature 96.7 F 11/02/23 01:59 Pulse Rate 107 H 11/02/23 01:59 Respiratory Rate 20 11/02/23 01:59 Blood Pressure 143/103 11/02/23 01:59 O2 Sat by Pulse Oximetry 100 11/02/23 01:59 Pain Scale Pain Intensity [Posterior Back 6 ] Pain Intensity 2 - Physical Exam General Appearance: no apparent distress Neck Exam: supple, limited range of motion (2/2 pain), midline tenderness (sta rting C6) Respiratory Exam: normal breath sounds, airway intact, No respiratory distress Cardiovascular Exam: regular rate/rhythm, normal heart sounds Gastrointestinal Exam: soft, normal bowel sounds, No tenderness Back Exam: vertebral tenderness, other (midline tenderness C6-L1), No CVA tenderness, No muscle spasm Extremity Exam: normal inspection Neurologic Exam: alert, 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, cooperative, city editor II-XII nml as tested, normal mood/affect, sensation nml, No motor deficits, No sensory deficit, No motor weakness SpO2 Interpretation: normal SpO2: 99 O2 Delivery: Room Air Ordered Tests: Active Orders 24 hr Category Date Time Status CERVICAL SPINE WO CONTRAST [CT] Stat Exams 11/02/23 02:24 Completed LUMBAR SPINE W/O [CT] Stat Exams 11/02/23 02:24 Completed THORACIC SPINE W/O CONTRAST [CT] Stat Exams 11/02/23 02:24 Completed HCG QUALITATIVE, URINE Stat Lab 11/02/23 02:05 Completed UA W/RFX UR CULTURE Stat Lab 11/02/23 02:05 Completed Medication Summary Discontinued Medications Generic Name Dose Route Start Last Admin Trade Name Henriqueq PRN Reason Stop Dose Admin Ketorolac Tromethamine 30 mg 11/02/23 02:21 11/02/23 02:30 Ketorolac Tromethamine 30 Mg/Ml Inj IM 11/02/23 02:22 30 mg STAT ONE Administration Ketorolac Tromethamine Confirm 11/02/23 02:27 Ketorolac Tromethamine 30 Mg/Ml Inj Administered 11/02/23 02:28 Dose 30 mg .ROUTE .STK-MED ONE Lab/Rad Data: Laboratory Results 11/02/23 11/02/23 Range/Units 02:05 02:05 Urine Color Yellow (Yellow) Urine Appearance Clear (Clear) Urine pH 6.5 (4.6-8.0) Ur Specific [place] 1.025 (1.005-1.030) Urine Protein Negative (Negative) Urine Glucose (UA) Negative (Negative) mg/dL Urine Ketones Negative (Negative) Urine Blood Negative (Negative) Urine Nitrite Negative (Negative) Urine Bilirubin Negative (Negative) Urine Urobilinogen 0.2 (0.2) mg/dL Ur Leukocyte Esterase Trace A (Negative) U Hyaline Cast (Auto) NONE SEEN (0-2) /LPF Urine Microscopic RBC 3-5 (0-5) /HPF Urine Microscopic WBC 6-10 A (0-5) /HPF Ur Epithelial Cells Moderate A (None Seen) /HPF Urine Bacteria Rare A (None Seen) /HPF Urine Culture Reflexed NO (NO) Urine HCG, Qual NEGATIVE (NEGATIVE) - Progress Progress: improved Progress Note: 11/02/23 02:36 given IM toradol injection CT C,T,L spine ordered to evaluate for midline tenderness no hx of IV drug abuse, low suspicion for epidural abscess 11/02/23 04:30 Pt reports pain is much improved, resting comfortably discussed CT results w/ pt plan for dc home w/ outpatient f/u w/ her neurologist for MRI instructed to use ibuprofen/tylenol and ice/heat for pain relief will write pt work note through 11/05/23 return precautions discussed - loss of bowel/bladder continence, spiking fever, loss of strength/sensation in extremities CT results: T spine 1. No acute osseous abnormality noted in the thoracic spine. 2. Thoracic spondylosis with disc degenerative disease noted at T9/T10 and T11/T12 vertebral level, for further evaluation of disc disease, would recommend MRI. L spine 1. No acute pathology could be detected. 2. Spondylotic changes in the lumbar spine, with multilevel disc osteophyte complexes/bulge, as detailed above. MRI would be helpful for further evaluation. 3. Fracture of the transverse process of the L1 vertebra on the right side, likely old/chronic. C spine 1. No acute pathology noted. 2. Straightening of the cervical spine possibly due to muscle spasm. Counseled pt/family regarding: diagnosis, need for follow-up, rad results Medical Desision Making - Diagnostic Testing Diagnostic test were ordered, analyzed, and reviewed by me: Yes Radiological Interpretation: Reviewed by me, Teleradiologist Report - Risk of complications Low Risk: Low risk of morbidity from additional dx testing or treatment - Departure Departure Disposition: Home Clinical Impression: Cervical spondylosis, Lumbar spondylosis, Lumbar degenerative disc disease Lumbar transverse process fracture Qualifiers: Encounter type: initial encounter Fracture type: closed Qualified Code(s): S32.009A - Unspecified fracture of unspecified lumbar vertebra, initial encounter for closed fracture Condition: Stable Critical Care Time: No Referrals: GEORGE HOFF MD [Primary Care Provider] - Follow up/PCP as directed Additional Instructions: plan for dc home w/ outpatient f/u w/ her neurologist for MRI instructed to use ibuprofen/tylenol and ice/heat for pain relief will write pt work note through 11/05/23 return precautions discussed - loss of bowel/bladder continence, spiking fever, loss of strength/sensation in extremities CT results: T spine 1. No acute osseous abnormality noted in the thoracic spine. 2. Thoracic spondylosis with disc degenerative disease noted at T9/T10 and T11/T12 vertebral level, for further evaluation of disc disease, would recommend MRI. L spine 1. No acute pathology could be detected. 2. Spondylotic changes in the lumbar spine, with multilevel disc osteophyte complexes/bulge, as detailed above. MRI would be helpful for further evaluation. 3. Fracture of the transverse process of the L1 vertebra on the right side, likely old/chronic. C spine 1. No acute pathology noted. 2. Straightening of the cervical spine possibly due to muscle spasm.
[2023-11-02 03:26] VITALS: RESP 18
--- NOTE | 2023-11-02 03:33 | XRAY ---
CLINICAL HISTORY: back pain TECHNIQUE: Multiple axial CT sections were acquired through thoracic spine without intravenous contrast. In addition, coronal and sagittal reconstructions were also obtained. COMPARISON: None. FINDINGS: Straightening of dorsal point seen likely due to muscular spasm. Multilevel anterior marginal osteophytes are seen with vacuum phenomena. Schmorls nodes are also noted in the lower thoracic spine. The vertebral bodies appear normal. The articulating vertebral end plates present smooth margins. The intervertebral disc spaces are of normal height. The bony spinal canal appears of normal width. The prevertebral and paravertebral soft tissue show no significant abnormality. At T1/T2: No Bilateral neural foraminal narrowing or spinal canal stenosis noted. T2-3: No Bilateral neural foraminal narrowing or spinal canal stenosis noted. T3-4: No Bilateral neural foraminal narrowing or spinal canal stenosis noted. T4-5: No Bilateral neural foraminal narrowing or spinal canal stenosis noted. T5-6: No Bilateral neural foraminal narrowing or spinal canal stenosis noted. T6-7: No Bilateral neural foraminal narrowing or spinal canal stenosis noted. T7-8 No Bilateral neural foraminal narrowing or spinal canal stenosis noted. T8-9: No Bilateral neural foraminal narrowing or spinal canal stenosis noted. T9-10: Mild diffuse disc bulge causing indentation over anterior thecal sac without causing significant spinal canal narrowing or neural foraminal stenosis T10-11:No Bilateral neural foraminal narrowing or spinal canal stenosis noted. T11-12: There is a suggestion of Posterior disc osteophyte complex at the T11/T12 vertebral level Causing indentation of anterior spinal canal without causing significant spinal canal narrowing or neural foraminal stenosis IMPRESSION: 1. No acute osseous abnormality noted in the thoracic spine. 2. Thoracic spondylosis with disc degenerative disease noted at T9/T10 and T11/T12 vertebral level, for further evaluation of disc disease, would recommend MRI. Electronically Signed by: Carlito Sommer MD. (11/02/2023 03:30:19 EST)
--- NOTE | 2023-11-02 03:48 | XRAY ---
CLINICAL HISTORY: back pain TECHNIQUE: Thin axial CT of the cervical spine was performed with sagittal and coronal reconstructions without contrast administration. COMPARISON: None. FINDINGS: Straightening of the cervical spine possibly due to muscle spasm. No definite evidence of fractures or spondylolisthesis. The vertebral bodies are normal in height. No lytic or sclerotic bone lesion. The craniovertebral measures are unremarkable. Disc heights are maintained. Small anterior osteophytes are seen at C5 and C6. No uncovertebral hypertrophic changes. No paraspinal masses. Level by Level analysis: C2-C3: No bony central canal or neuroforaminal stenosis. C3-C4: No bony central canal or neuroforaminal stenosis. C4-C5: No bony central canal or neuroforaminal stenosis. C5-C6: No bony central canal or neuroforaminal stenosis. C6-C7: No bony central canal or neuroforaminal stenosis. C7-T1: No bony central canal or neuroforaminal stenosis. IMPRESSION: 1. No acute pathology noted. 2. Straightening of the cervical spine possibly due to muscle spasm. 3. Minimal cervical spondylosis. Electronically Signed by: Carlito Sommer MD. (11/02/2023 03:43:37 EST)
--- NOTE | 2023-11-02 04:22 | XRAY ---
CLINICAL HISTORY: back pain TECHNIQUE: Axial sections of CT lumbar spine were obtained without administration of intravenous contrast. Reformatted coronal and sagittal images were acquired. COMPARISON: None. FINDINGS: Lumbar lordosis is maintained. Mild curvature of the lumbar spine with convexity towards the left side. Vertebral body heights are intact. Reduced L1-L2 disc space. Spondylotic changes in the lumbar spine with multilevel osteophytes, endplate changes, facet arthropathic changes and ligamentum flavum hypertrophy. T11-T12: Disc osteophyte complex with left preponderance resulting in thecal sac indentation and mild left neural foraminal stenosis. L1-L2: No significant disc herniation canal stenosis or neural foraminal stenosis. L2-L3:No significant disc herniation canal stenosis or neural foraminal stenosis L3-L4: Mild asymmetric disc bulge with left preponderance resulting in thecal sac indentation and mild left neural foraminal narrowing. L4-L5: Left paracentral, foraminal and extraforaminal zone broad-based disc protrusion in combination with osteophyte formation [measuring approximately 6 mm] resulting in moderate to severe left neural foraminal narrowing with impingement of exiting nerve root. L5-S1 level: Mild central disc protrusion resulting in thecal sac indentation. No neural foraminal stenosis. Fracture of the transverse process of the L1 vertebra on the right side, likely old/chronic. Bone density appears reduced. There is a suggestion of mild subcutaneous edema in the subcutaneous soft tissues of the back. IMPRESSION: 1. No acute pathology could be detected. 2. Spondylotic changes in the lumbar spine, with multilevel disc osteophyte complexes/bulge, as detailed above. MRI would be helpful for further evaluation. 3. Fracture of the transverse process of the L1 vertebra on the right side, likely old/chronic. Electronically Signed by: Carlito Sommer MD. (11/02/2023 04:17:56 EST)
[2023-11-02 04:30] VITALS: BP 128/85; PULSE 88
[2023-11-02 04:36] VITALS: O2SAT 99
== END 2023-11-02 04:48 | disposition home or self-care (01) ==
LOC: ED 01:48
DX: M47.812 Spondylosis without myelopathy or radiculopathy, cervical region (principal); M47.816 Spondylosis without myelopathy or radiculopathy, lumbar region; M51.36 Other intervertebral disc degeneration, lumbar region; S32.009A Unspecified fracture of unspecified lumbar vertebra, initial encounter for closed fracture; X50.0XXA Overexertion from strenuous movement or load, initial encounter; X50.3XXA Overexertion from repetitive movements, initial encounter; Y92.63 Factory as the place of occurrence of the external cause; Y99.0 Civilian activity done for income or pay; Z79.899 Other long term (current) drug therapy
CPT/HCPCS: 72125; 72128; 72131; 81001; 81025; 96372; 99284; J1885

== ENCOUNTER 2023-12-17 11:08 | Emergency (ER) | payer OTHER ==
[2023-12-17] MEDS ORDERED: Hydromorphone 1 mg/ml Injection ONE (11:32)
[2023-12-17] MEDS: Hydromorphone 1 mg/ml Injection IM ONE (11:33)
[2023-12-17 11:35] VITALS: TEMP 98
[2023-12-17 11:55] LABS: Appearance Sl Cloudy* (Clear); Bilirubin Negative (Negative); Blood Negative (Negative); Glucose, Urine Negative (Negative); Ketones Negative (Negative); Leukocyte Esterase Trace (Negative); Nitrite Negative (Negative); Ph 5.5 (4.6-8.0); Protein,Urine Dip Negative (Negative); Specific Gravity >=1.030 (1.005-1.030); Urobilinogen 0.2 mg/dL (0.2)
[2023-12-17 12:00] LABS: ADD URINE CULTURE? YES (NO); Bacteria Moderate /HPF (None Seen); Epithelial Cells Many /HPF (None Seen)
--- NOTE | 2023-12-17 12:34 | XRAY ---
Indication: Pain. Multiple contiguous images obtained through the lumbar spine. Sagittal and coronal reformatted images obtained. Comparison: November 02, 2023 L4-L5 level demonstrates worsening large left lateral disc herniation. Herniated disc further effaces thecal sac occupying left epidural space. Worsening left foraminal stenosis. Stable minimal L5-S1 central disc bulge. Remaining levels negative for disc herniation or spinal canal stenosis. Facets are symmetric. Sagittal and coronal reformatted images again demonstrate normal lumbar alignment with vertebral body heights/disc spaces maintained. Visualized noncontrasted soft tissues unremarkable. Impression: 1. Worsening L4-L5 left lateral disc herniation with worsening left foraminal stenosis. 2. Stable minimal L5-S1 central disc bulge.
[2023-12-17 13:17] VITALS: BP 130/95; PULSE 79; RESP 21
--- NOTE | 2023-12-17 13:17 | ERPHSYRPT ---
- History of Present Illness Time Seen by Provider: 12/17/23 11:40 Source: patient Exam Limitations: no limitations Patient Subjective Stated Complaint: C/O left lower back pain. States, "I heard a pop in my butt cheek" yesterday evening when getting into bed. States pain radiates down into her left buttocks, left thigh and radiates upward into her mid left back. Triage Nursing Assessment: Patient ambulated back to ER. She is alert and oriented. No SOB. Skin tone normal. No bruising or skin alterations noted to reported areas of pain. Physician History: Patient presents with a complaint of severe lower back pain. She started yesterday evening when she rolled over in bed and felt a pop in the left lower back. She had no problems with the bowels or bladder she is currently in physical therapy for degenerative disc disease her pain is gotten worse since she heard the pop. Timing/Duration: yesterday Method of Injury: turning Quality: sharp Back Pain Location: lumbar spine Back Pain Radiation: upper legs Severity of Pain-Max: severe Severity of Pain-Current: moderate Modifying Factors: Improves With: movement Associated Symptoms: No urinary incontinence, No loss of bowel control Allergies/Adverse Reactions: Penicillins Allergy (Verified 12/17/23 11:19) Sulfa (Sulfonamide Antibiotics) Allergy (Verified 12/17/23 11:19) Home Medications: Fexofenadine HCl [Kassi Allergy] 1 tab PO DAILY 11/02/23 [History] Levetiracetam [Keppra] 1,500 mg PO BID 11/02/23 [History] Montelukast Sodium 10 mg [Singulair 10 MG] 10 mg PO DAILY 11/02/23 [History] risperiDONE [Risperidone] 1 mg PO BID 11/02/23 [History] Diclofenac Sodium 1 tab PO BID 12/17/23 [History] Hx Tetanus, Diphtheria Vaccination/Date Given: Yes Hx Influenza Vaccination/Date Given: Yes Hx Pneumococcal Vaccination/Date Given: Yes Immunizations Up to Date: Yes Travel Risk - International Travel Have you traveled outside of the country in past 3 weeks: No - Emerging Infectious Disease Are you exhibiting symptoms associated with any current EIDs: No - Review of Systems Constitutional: No Fever, No Chills Eyes: No Symptoms Ears, Nose, & Throat: No Symptoms Respiratory: No Cough, No Dyspnea Cardiac: No Chest Pain, No Edema, No Syncope Abdominal/Gastrointestinal: No Abdominal Pain, No Nausea, No Vomiting, No Diarrhea Genitourinary Symptoms: No Dysuria Musculoskeletal: Back Pain, No Neck Pain Skin: No Rash Neurological: Parasthesia, No Dizziness, No Focal Weakness, No Sensory Changes Psychological: No Symptoms Endocrine: No Symptoms All Other Systems: Reviewed and Negative - Past Medical History Pertinent Past Medical History: Yes Neurological History: Migraines, Seizures Cardiac History: No Pertinent History Respiratory History: Asthma Endocrine Medical History: No Pertinent History Musculoskeletal History: Degenerative Disk Disease, Fractures, Osteoarthritis, Other GI Medical History: Crohns Disease Psycho-Social History: Anxiety, Attention Deficit Disorder, Depression Other Medical History: SCOLIOSIS, "SPLINTERING" OF THE SPINE, BREAST REDUCTION X 2 WITH MOST RECENT 2022, LEFT ELBOW FRACTURE - Past Surgical History Past Surgical History: Yes Female Surgical History: Hysterectomy Other Surgical History: sinus, left elbow, right wrist, breast reduction - Female History Hx Now: No - Social History Smoking Status: Never smoker Exposure to second hand smoke: No Drug Use: none Patient Lives Alone: No - Nursing Vital Signs Nursing Vital Signs: Initial Vital Signs Temperature 98 F 12/17/23 11:21 Pulse Rate 86 12/17/23 11:21 Respiratory Rate 15 12/17/23 11:21 Blood Pressure 131/99 12/17/23 11:21 O2 Sat by Pulse Oximetry 97 12/17/23 11:21 Pain Scale Pain Intensity 8 - Physical Exam General Appearance: no apparent distress, alert Eye Exam: PERRL/EOMI, eyes nml inspection Neck Exam: normal inspection, non-tender, supple, full range of motion, No meningismus, No midline tenderness Respiratory Exam: normal breath sounds, lungs clear, No respiratory distress Cardiovascular Exam: regular rate/rhythm, normal heart sounds Gastrointestinal Exam: soft, No tenderness, No mass Back Exam: other (Straight leg raising positive on the left) Extremity Exam: normal inspection, normal range of motion, No calf tenderness, No pedal edema Neurologic Exam: alert, 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, cooperative, novelty candy maker II-XII nml as tested, normal mood/affect, nml station & gait, sensation nml, No motor deficits Skin Exam: normal color, warm, dry, No rash SpO2: 96 - Course Nursing assessment & vital signs reviewed: Yes - CT Exams Lumbar Spine CT Interpretation: Other (I reviewed the radiologist report) Ordered Tests: Active Orders 24 hr Category Date Time Status ACO SDOH Referral ONCE Cons 12/17/23 11:35 Active LUMBAR SPINE W/O [CT] Stat Exams 12/17/23 11:24 Completed CULTURE,URINE Stat Lab 12/17/23 11:26 Received UA W/RFX UR CULTURE Stat Lab 12/17/23 11:26 Completed Medication Summary Discontinued Medications Generic Name Dose Route Start Last Admin Trade Name Ck PRN Reason Stop Dose Admin Hydromorphone HCl 1 mg 12/17/23 11:22 12/17/23 11:33 Hydromorphone 1 Mg/1ml Inj IM 12/17/23 11:23 1 mg STAT ONE Administration Hydromorphone HCl Confirm 12/17/23 11:32 Hydromorphone 1 Mg/1ml Inj Administered 12/17/23 11:33 Dose 1 mg .ROUTE .STK-MED ONE Lab/Rad Data: Laboratory Results 12/17/23 Range/Units 11:26 Urine Color Yellow (Yellow) Urine Appearance Sl Cloudy* A (Clear) Urine pH 5.5 (4.6-8.0) Ur Specific Decker >=1.030 A (1.005-1.030) Urine Protein Negative (Negative) Urine Glucose (UA) Negative (Negative) mg/dL Urine Ketones Negative (Negative) Urine Blood Negative (Negative) Urine Nitrite Negative (Negative) Urine Bilirubin Negative (Negative) Urine Urobilinogen 0.2 (0.2) mg/dL Ur Leukocyte Esterase Trace A (Negative) Urine Microscopic RBC 3-5 (0-5) /HPF Urine Microscopic WBC 6-10 A (0-5) /HPF Ur Epithelial Cells Many A (None Seen) /HPF Urine Bacteria Moderate A (None Seen) /HPF Urine Culture Reflexed YES (NO) - Progress Progress: unchanged Medical Desision Making - Diagnostic Testing Radiological Interpretation: Reviewed by me - Risk of complications Low Risk: Low risk of morbidity from additional dx testing or treatment - Departure Departure Disposition: Home Clinical Impression: Lumbar radiculopathy Condition: Stable Critical Care Time: No Referrals: GEORGE HOFF MD [Primary Care Provider] - Follow up/PCP as directed Instructions: Sciatica (DC) Prescriptions: Hydrocodone/Acetaminophen [Hydrocodone-Acetamin 5-325 mg] 1 tab PO Q6HPRN PRN 3 Days #12 tablet MDD 4 PRN Reason: Pain Prednisone 10 mg [Deltasone 10 mg] 10 mg PO TID #12 tablet
[2023-12-17 13:18] VITALS: O2SAT 96
== END 2023-12-17 13:20 | disposition home or self-care (01) ==
LOC: ED 11:08
DX: M54.16 Radiculopathy, lumbar region (principal); M54.50 Low back pain, unspecified; Z79.891 Long term (current) use of opiate analgesic; Z79.52 Long term (current) use of systemic steroids; Z79.899 Other long term (current) drug therapy
CPT/HCPCS: 72131; 81001; 87077; 87086; 87186; 96372; 99283; J1170

== ENCOUNTER 2023-12-22 22:58 | Emergency (ER) | payer OTHER ==
[2023-12-22 23:26] VITALS: RESP 18; TEMP 98.4; O2SAT 97
--- NOTE | 2023-12-23 00:12 | ERPHSYRPT ---
- History of Present Illness Time Seen by Provider: 12/22/23 23:20 Source: patient Exam Limitations: no limitations Patient Subjective Stated Complaint: pt stae she slid on ceramic tile in her kitchen. caught herslef iwth her lt hand, hurting her lt writ and her lt ankle t urned inward. Triage Nursing Assessment: pt alert and oriented, answers questions approp. pt ambulated into waiting room with limping gait noted. from wheelchair to stretcher in room, pt no longer bearing wt on lt lower ext. skin warm and dry. respirations nonlabored. pedal pulse and cap refill to lt lwerext wnl. radial plse and cap refill to lt upper wnl. Physician History: 43-year-old female presents to emergency department for evaluation of pain to the left ankle and left wrist. Patient states she was ambulating in her home on tile that was just cleaned. The surface was slick she slipped and inverted her left ankle and landed on her left wrist. Pain described as an ache that is localized no radiation. No BHT or LOC no neck pain cervical spine cleared clinically. Injury occurred just prior to arrival. Patient requesting Tylenol for pain. The fall was mechanical and not associated with any neuro cardiovascular symptomology. Patient voices no other complaints or concerns at this time. Portions of this note were created with voice recognition technology. There may be grammatical, spelling, punctuation or sound alike errors Timing/Duration: today Severity: moderate Modifying Factors: Improves With: nothing Associated Symptoms: denies symptoms Allergies/Adverse Reactions: Penicillins Allergy (Verified 12/22/23 23:26) Sulfa (Sulfonamide Antibiotics) Allergy (Verified 12/22/23 23:26) Home Medications: Fexofenadine HCl [Kassi Allergy] 1 tab PO DAILY 11/02/23 [History] Levetiracetam [Keppra] 1,500 mg PO BID 11/02/23 [History] Montelukast Sodium 10 mg [Singulair 10 MG] 10 mg PO DAILY 11/02/23 [History] risperiDONE [Risperidone] 1 mg PO BID 11/02/23 [History] Diclofenac Sodium 1 tab PO BID 12/17/23 [History] Hx Tetanus, Diphtheria Vaccination/Date Given: Yes Hx Influenza Vaccination/Date Given: Yes Hx Pneumococcal Vaccination/Date Given: Yes Immunizations Up to Date: Yes Travel Risk - International Travel Have you traveled outside of the country in past 3 weeks: No - Emerging Infectious Disease Are you exhibiting symptoms associated with any current EIDs: No - Review of Systems Constitutional: No Symptoms, No Fever, No Chills Eyes: No Symptoms Ears, Nose, & Throat: No Symptoms Respiratory: No Symptoms, No Cough, No Dyspnea Cardiac: No Symptoms, No Chest Pain, No Edema, No Syncope Abdominal/Gastrointestinal: No Symptoms, No Abdominal Pain, No Nausea, No Vomiting, No Diarrhea Genitourinary Symptoms: No Symptoms, No Dysuria Musculoskeletal: No Symptoms, No Back Pain, No Neck Pain Skin: No Symptoms, No Rash Neurological: No Symptoms, No Dizziness, No Focal Weakness, No Sensory Changes Psychological: No Symptoms Endocrine: No Symptoms Hematologic/Lymphatic: No Symptoms Immunological/Allergic: No Symptoms All Other Systems: Reviewed and Negative - Past Medical History Pertinent Past Medical History: Yes Neurological History: Migraines, Seizures Cardiac History: No Pertinent History Respiratory History: Asthma Endocrine Medical History: No Pertinent History Musculoskeletal History: Degenerative Disk Disease, Fractures, Osteoarthritis, Other GI Medical History: Crohns Disease Psycho-Social History: Anxiety, Attention Deficit Disorder, Depression Other Medical History: SCOLIOSIS, "SPLINTERING" OF THE SPINE, BREAST REDUCTION X 2 WITH MOST RECENT 2022, LEFT ELBOW FRACTURE. new dagnosis of fibromyalgia 12/2023 - Past Surgical History Past Surgical History: Yes Female Surgical History: Hysterectomy Other Surgical History: sinus, left elbow, right wrist, breast reduction - Female History Hx Last Menstrual Period: hyster Hx Now: No - Social History Smoking Status: Never smoker Exposure to second hand smoke: No Drug Use: none Patient Lives Alone: No - Nursing Vital Signs Nursing Vital Signs: Initial Vital Signs Temperature 98.4 F 12/22/23 23:10 Pulse Rate 90 12/22/23 23:10 Respiratory Rate 18 12/22/23 23:10 Blood Pressure 157/105 12/22/23 23:10 O2 Sat by Pulse Oximetry 97 12/22/23 23:10 Pain Scale Pain Intensity 9 - Physical Exam General Appearance: no apparent distress, alert Eye Exam: PERRL/EOMI, eyes nml inspection Ears, Nose, Throat Exam: normal ENT inspection, moist mucous membranes Neck Exam: normal inspection, non-tender, supple, full range of motion Respiratory Exam: normal breath sounds, lungs clear, airway intact, No respiratory distress Cardiovascular Exam: regular rate/rhythm, normal heart sounds, normal peripheral pulses Gastrointestinal/Abdomen Exam: soft, normal bowel sounds, No tenderness, No mass Back Exam: normal inspection, normal range of motion, No CVA tenderness, No vertebral tenderness Extremity Exam: normal inspection, normal range of motion, pelvis stable Neurologic Exam: alert, 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, cooperative, normal mood/affect, nml cerebellar function, nml station & gait, sensation nml, No motor deficits Skin Exam: normal color, warm, dry, No rash Lymphatic Exam: No adenopathy SpO2 Interpretation: normal SpO2: 97 O2 Delivery: Room Air - Course Nursing assessment & vital signs reviewed: Yes - Radiology Exams Ankle X-ray Interpretation: Reviewed by me (No fracture dislocation soft tissue swelling heel spur) Wrist X-ray Interpretation: Reviewed by me (No fracture or dislocations. ) Ordered Tests: Active Orders 24 hr Category Date Time Status ANKLE (3 VIEWS) Stat Exams 12/22/23 23:46 Taken WRIST (MIN 3 VIEWS) Stat Exams 12/22/23 23:45 Taken Medication Summary Generic Name Dose Route Start Last Admin Trade Name Freq PRN Reason Stop Dose Admin Acetaminophen 975 mg 12/23/23 00:14 Acetaminophen 325 Mg Tablet PO 12/23/23 00:15 STAT ONE - Progress Progress: improved Progress Note: 43-year-old female presents emergency department for evaluation of pain to her left ankle and left wrist. Patient slipped on slippery tile in her home. Physical exam reveals some tenderness to the left wrist left ankle. Overlying soft tissue intact. No open or draining lesions. Left upper and left lower extremity are neurovascular tact distally compartments are soft cap refill less than 2 seconds. Patient received Tylenol for pain control. X-ray of left wrist and left ankle are negative for acute pathology. No fracture or dislocation. Bilateral axillary crutches provided. Tylenol administered for pain control per patient request. Referral to orthopedic clinic completed. Patient will follow-up on Wednesday in the orthopedic clinic as discussed. Patient received bilateral axillary crutches as well as crutch training. She voices no other complaints or concerns at this time. Portions of this note were created with voice recognition technology. There may be grammatical, spelling, punctuation or sound alike errors Complexity problem addressed is moderate acute complicated No critical care time Complex of data reviewed and analyzed is moderate. Test ordered test reviewed results analyzed and correlated clinically with history and physical examination. Dr. Fregoso independently reviewed the x-rays of both the left wrist and left ankle. Risk of complication and a risk of morbidity/mortality patient management is moderate. A prescription for Toradol forwarded to patient's pharmacy. Vital stable. Time spent to discharge patient is approximately 20 minutes. Plan of care established for shared decision making. No social determinants of health present impede follow-up. Portions of this note were created with voice recognition technology. There may be grammatical, spelling, punctuation or sound alike errors 12/23/23 00:17 Counseled pt/family regarding: diagnosis, need for follow-up, rad results - Departure Departure Disposition: Home Clinical Impression: Fall, Ankle sprain, Heel spur Condition: Stable Critical Care Time: No Referrals: GEORGE HOFF MD [Primary Care Provider] - Follow up/PCP as directed Additional Instructions: Discharge/Care Plan JUANITOKALE LAMONT was seen on 12/23/23 in the Emergency Room. The patient was counseled regarding Diagnosis,Lab results, Imaging studies, need for follow up and when to return to the Emergency Room. Prescriptions given: Discharge Note I have spoken with the patient and/or caregivers. I have explained the patient's condition, diagnosis and treatment plan based on the information available to me at this time. I have answered the patient's and/or caregiver's questions and addressed any concerns. The patient and/or caregivers have as good understanding of the patient's diagnosis, condition and treatment plan as can be expected at this point. The vital signs have been stable. The patient's condition is stable and appropriate for discharge from the emergency department. The patient will pursue further outpatient evaluation with the primary care physician or other designated or consulting physician as outlined in the discharge instructions. The patient and/or caregivers are agreeable to this plan of care and follow-up instructions have been explained in detail. The patient and/or caregivers have received these instruction. The patient/and or caregivers are aware that any significant change in condition or worsening of symptoms should prompt an immediate return to this or the closest emergency department or call 911. Outpatient Orders: Ortho Referral Time Frame: 1 Day, Facility: [facility] Hosp, Location: [facility]
[2023-12-23 00:20] VITALS: BP 143/93; PULSE 88
[2023-12-23] MEDS ORDERED: TYLENOL 325 MG ONE (00:22)
[2023-12-23] MEDS: TYLENOL 325 MG PO ONE (00:23)
--- NOTE | 2023-12-23 08:51 | XRAY ---
Indication: Pain following fall. Comparison: None 3 view left wrist demonstrates mild 1st metacarpal multangular degenerative changes and radiocarpal joint space narrowing. No other bony, articular, or soft tissue abnormalities..
--- NOTE | 2023-12-23 08:57 | XRAY ---
Indication: Pain following fall. Comparison: None 3 view left ankle demonstrates tiny nondisplaced avulsion type fracture involving tip lateral malleolus with anterior lateral soft tissue swelling. Incidental small posterior/plantar heel spurs. No other bony, articular, or soft tissue abnormalities. Comment: Fracture not reported by interpreting ER clinician. Telephone report given to Dr. Mcduffie at 0855 hrs on December 23, 2023.
== END 2023-12-23 00:43 | disposition home or self-care (01) ==
LOC: ED 22:58
DX: S93.402A Sprain of unspecified ligament of left ankle, initial encounter (principal); W01.0XXA Fall on same level from slipping, tripping and stumbling without subsequent striking against object, initial encounter; Y93.01 Activity, walking, marching and hiking; Y92.000 Kitchen of unspecified non-institutional (private) residence as the place of occurrence of the external cause; M77.32 Calcaneal spur, left foot; M25.532 Pain in left wrist; Z79.899 Other long term (current) drug therapy
CPT/HCPCS: 73110; 73610; 99283; A9270-GY

== ENCOUNTER 2024-01-12 13:48 | Day surgery (SDC) | payer OTHER ==
[2024-01-12] MEDS ORDERED: LIDOCAINE HCL 2% 100 MG/5 ML IJ ONE (13:49)
[2024-01-12] MEDS ORDERED: DIPRIVAN 200 MG/20 ML IV ONE (16:32)
--- NOTE | 2024-01-12 17:10 | XRAY ---
Indication: Bilateral T9-T11 MBB. Intraoperative fluoroscopy provided for 20 seconds. Single digital spot image submitted for interpretation demonstrates posterior needle tips projecting over expected left and right T9-T11 nerve roots. Correlate with intraoperative findings/report.
[2024-01-12] MEDS ORDERED: Lactated Ringers 1,000 ML IV ONE (17:25)
--- NOTE | 2024-01-13 08:55 | XRAY ---
20 seconds of fluoroscopy was used in surgery for a bilateral T9-T11 MBB.
== END 2024-01-12 17:00 | disposition home or self-care (01) ==
LOC: SDC-PAIN 13:48
PROVIDERS: ATTEND Psychiatry & Neurology Pain Medicine
DX: M47.814 Spondylosis without myelopathy or radiculopathy, thoracic region (principal)
CPT/HCPCS: 64490; 64491; 72072; 77002; J2704

== ENCOUNTER 2024-02-09 13:31 | Day surgery (SDC) | payer OTHER ==
[2024-02-09] MEDS ORDERED: BUPIVACAINE 0.5% VIAL IJ ONE (13:32)
[2024-02-09] MEDS ORDERED: Lactated Ringers 1,000 ML IV ONE (14:31)
[2024-02-09] MEDS ORDERED: DIPRIVAN 200 MG/20 ML IV ONE (15:07)
--- NOTE | 2024-02-09 16:29 | XRAY ---
Indication: Bilateral T9-T11 MBB. Intraoperative fluoroscopy provided for 26 seconds. 2 digital spot image submitted for interpretation demonstrates posterior needle tips projecting over the expected left and right T9-T11 nerve roots. Correlate with intraoperative findings/report.
--- NOTE | 2024-02-09 17:20 | XRAY ---
26 seconds of fluoroscopy was used in surgery for a bilateral T9-T11 MBB.
== END 2024-02-09 15:48 | disposition home or self-care (01) ==
LOC: SDC-PAIN 13:31
PROVIDERS: ATTEND Psychiatry & Neurology Pain Medicine
DX: M47.814 Spondylosis without myelopathy or radiculopathy, thoracic region (principal)
CPT/HCPCS: 64490; 64491; 72072; 77002; J2704

== ENCOUNTER 2024-03-02 10:26 | Day surgery (SDC) | payer OTHER ==
[~2024-03-02 10:26] MED LIST: Epinephrine Preservative Free 1 MG/ML ONE; Marcaine Mpf 0.5% Vial 30 Ml ONE; XYLOCAINE 1% HCL 20 ML MDV ONE
[2024-03-02] MEDS ORDERED: Lactated Ringers 1,000 ML IV ONE (11:20)
[2024-03-02] MEDS ORDERED: CLINDAMYCIN-D5W 900 MG/50 ML*** 900 MG/50 ML BAG IV ONE (11:21)
[2024-03-02] MEDS ORDERED: TYLENOL EXTRA STRENGTH 500 MG ONE (11:21)
[2024-03-02] MEDS ORDERED: Decadron 4 MG ONE (11:21)
[2024-03-02] MEDS ORDERED: NEURONTIN ONE (11:21)
[2024-03-02] MEDS ORDERED: celeBREX 100 MG ONE (11:21)
[2024-03-02] MEDS: Lactated Ringers 1,000 ML IV SCH (11:23)
[2024-03-02] MEDS: CLINDAMYCIN-D5W 900 MG/50 ML*** 900 MG/50 ML BAG IV STA (11:23)
[2024-03-02] MEDS: TYLENOL EXTRA STRENGTH 500 MG PO ONE (11:24)
[2024-03-02] MEDS: Decadron 4 MG PO ONE (11:24)
[2024-03-02] MEDS: celeBREX 100 MG PO ONE (11:24)
[2024-03-02] MEDS: NEURONTIN PO ONE (11:24)
[2024-03-02] MEDS ORDERED: Naropin 0.5% 30 ML VIAL ONE (11:57)
[2024-03-02] MEDS ORDERED: SUBLIMAZE 100 MCG/2 ML ONE ×2 (11:57→12:49)
[2024-03-02] MEDS ORDERED: Marcaine 0.5%/Epinephrine 10 ML ONE (11:57)
[2024-03-02] MEDS ORDERED: Versed 2 MG/2 ML Injection ONE (11:57)
[2024-03-02] MEDS ORDERED: Xylocaine-Mpf 2% 5 Ml Vial ONE (11:57)
[2024-03-02 11:59] LABS: Absolute Neutrophil Ct (ANC) 4.59 x10^3/uL (1.56-6.13); BASOPHIL % 0.6 % (0.1-1.2); Basophil (Absolute #) 0.05 x10^3/uL (0.01-0.08); Eosinophil % 1.8 % (0.7-5.8); Eosinophil (Absolute #) 0.16 x10^3/uL (0.04-0.36); Hematocrit 39.7 % (34.1-44.9); IMMATURE GRAN # 0.03 x10^3u/L (0.001-0.031); IMMATURE GRAN % 0.3 % (0.001-0.429); Lymphocyte (Absolute #) 3.36 x10^3/uL (1.18-3.74); Lymphocytes % 38.2 % (19.3-51.7); Mean Cell Volume 92.8 fL (79.4-94.8); Mean Corpuscular Hemoglobin 30.4 pg (25.6-32.2); Mean Corpuscular Hgb Concent. 32.7 g/dL (32.2-35.5); Mean Platelet Volume 9.6 fL (9.4-12.3); Monocyte (Absolute #) 0.61 x10^3/uL (0.24-0.86); Monocytes % 6.9 % (4.7-12.5); Neutrophil % 52.2 % (34.0-71.1); Platelet Count 276 x10^3/uL (182-369); Red Blood Count 4.28 x10^6/uL (3.93-5.22); Red Cell Distribution Width 13.2 % (11.7-14.4); White Blood Count 8.8 x10^3/uL (3.98-10.04)
[2024-03-02 12:10] LABS: ISTAT K 4.1 mmol/L (3.5-4.9)
[2024-03-02 12:11] LABS: ISTAT CREA 0.7 mg/dL (0.6-1.3); ISTAT iCA 1.18 mmol/L (1.12-1.32)
[2024-03-02] MEDS ORDERED: ROCURONIUM BROMIDE IV ONE (12:49)
[2024-03-02] MEDS ORDERED: Zofran 4 MG/2 ML VIAL ONE (12:49)
[2024-03-02] MEDS ORDERED: TORAdol 30 mg Injection ONE (12:49)
[2024-03-02] MEDS ORDERED: Pepcid 20 MG VIAL IV ONE (12:51)
[2024-03-02] MEDS ORDERED: Reglan 10 MG/2 ML ONE (12:51)
[2024-03-02] MEDS ORDERED: Quelicin Fliptop 200 MG/10 ML ONE (12:59)
[2024-03-02 13:19] LABS: ALBUMIN 3.9 g/dL (3.5-5.0); ANION GAP 10.6 MEQ/L (5-15); BILIRUBIN,TOTAL 0.2 mg/dL (0.2-1.3); Calcium 9.4 mg/dL (8.4-10.2); Creatinine 1 0.62 mg/dL (0.52-1.04); EST GLOMERULAR FILTRATION RATE 113.3 ML/MIN; Potassium 4.1 mmol/L (3.5-5.1); Total Protein 7.4 g/dL (6.3-8.2)
[2024-03-02] MEDS ORDERED: Epinephrine Preservative Free 1 MG/ML ONE (13:44)
[2024-03-02] MEDS ORDERED: DIPRIVAN 200 MG/20 ML IV ONE (14:50)
--- NOTE | 2024-03-02 15:14 | XRAY ---
Indication: Left ankle arthroscopy with synovectomy. Possible ankle stabilization. SFAC. Intraoperative fluoroscopy provided for 1 minute 47 seconds. Multiple digital spot and numerous cinematic images left ankle obtained. Tips of metallic localizer projects anterior talus and mid talus. Also instrumentation lateral malleolus. Correlate with intraoperative findings/report.
--- NOTE | 2024-03-02 15:29 | XRAY ---
One minute and 47 seconds of fluoroscopy was used in surgery for a left ankle arthroscopy with synovectomy. Possible ankle stabilization. SFAC.
[2024-03-02 16:01] VITALS: RESP 14; O2SAT 96
[2024-03-02 16:18] VITALS: BP 118/71; PULSE 70; TEMP 95.6
--- NOTE | 2024-03-05 13:39 | OP ---
SURGERY DATE/TIME: 03/02/2024 6467 - [id number] PREOPERATIVE DIAGNOSES: 1) Left ankle synovitis. 2) Left ankle instability. 3) Left ankle pain. POSTOPERATIVE DIAGNOSES: 1) Left ankle synovitis. 2) Left ankle instability. 3) Left ankle pain. PROCEDURES: 1) Ankle arthroscopy with complete synovectomy, left ankle. 2) Lateral ankle stabilization. SURGEON: Tristin Rich MD WEIGHER BULKER: None. ANESTHESIA: General plus a preoperative popliteal and saphenous block. See anesthesia report for details. HEMOSTASIS: Thigh tourniquet set to 300 mmHg for a total of 45 total tourniquet minutes. ESTIMATED BLOOD LOSS: Approximately 5 mL. MATERIALS: Bennie lateral ankle stabilization with a 4.5 ComposiTCP with BroadBand and 2A 2.9 Betalink, along with two 1.45 JuggerKnots. INJECTABLES: See Anesthesia report for details. INDICATIONS: The patient is a very pleasant 43-year-old female known to my service in recent history for failure to respond to conservative therapy with the use of CAM walkers, anti-inflammatories, and physical therapy as well as given a significant amount of time to recover from her injury. An MRI was obtained demonstrating ankle effusion as well as an avulsion fracture off the ATFL and portion of the CFL, with significant inflammation surrounding it. Patient has failed conservative therapy for approximately 3 months at this time, and does exhibit some indications of significant instability to the ankle as well as pain. From that standpoint, all risks, complications, and benefits of the intervention were discussed with the patient at length including, but not limited to, infection, hematoma, seroma, possibility of delayed wound healing, non-wound healing, and possible need for further surgical intervention at a later date. No guarantees were provided as to the outcome of surgery at this time. Plenty of time was allowed for the patient to ask questions which were answered to her apparent satisfaction, so at this time we decided to proceed. DESCRIPTION OF PROCEDURE AND FINDINGS: The patient was brought into the PACU prior to the procedure and provided a popliteal and saphenous block per Anesthesia, please see Anesthesia report for details. The patient was then brought into the operating room, placed on the operating room table in a supine position. At this time, general anesthesia was administered until the patient was adequately sedated. At this time, a well-padded thigh tourniquet was applied to the left lower extremity, and the left lower extremity was prepped and draped in the typical sterile fashion. At this time, landmarks were identified. The medial malleolus and lateral malleolus were identified as well as a palpable dell at the anterior aspect of the ankle joint. These were marked out with a skin marker and our anteromedial and anterolateral portal sites were drawn in with a skin marker. At this time, utilizing an 18-gauge needle on a 50 mL syringe of lactated Ringer's, the ankle joint was insufflated. An 11-blade was utilized to establish the anteromedial portal site through the skin and then blunt dissection was carried down utilizing a curved mini puncturing through the ankle joint seeing some of the insufflation fluid leak out. A blunt obturator and trocar were introduced. The obturator was removed, and the 4.0, 30-degree mm camera was then introduced inspecting the joint. At this time, inspection of the joint demonstrated a significant amount of synovitis, which at that time decision was made to establish our shaver portal at the anterolateral aspect, being careful not to damage any neurovascular structures. An 11 blade was utilized once again and was carried down to the level of the ankle joint utilizing a curved mini hemostat. The 2.7 mm shaver was then introduced and debridement of the joint took place. Inspection of the syndesmosis, the AITFL, and the ATFL at that time was identified. There was a significant amount of scar tissue seen over the ATFL which was debrided. The medial aspect had a significant amount of synovitis within the gutter, and at this time, decision was made to debride this out. The joint surface was probed to check for any critical irregularities, which none were found, other than the delamination on the anterior aspect of the tibial side. That concluded the arthroscopic portion of the procedure which the scope was then retracted. At this time, an Esmarch was utilized to exsanguinate the leg. Blood in the tourniquet was set to 30 mmHg. A lateral incision was made at the midline of the distal fibula, extending to the anterior process of the calcaneus. This was carried down, making sure not to damage any neurovascular structures. Once the ATFL was identified, it was reflected off the fibula, finding the avulsion fracture that was seen on the MRI as well as the x-rays, and removing this portion of bone. From that standpoint, the lateral ankle stabilization with internal brace was performed utilizing a 4.5 ComposiTCP which was anchored into the body of the talus and securing the BroadBand to a 2.9 Betalink with the foot in the dorsiflexed position into the footprint of the ATFL. Following this, two 1.45 JuggerKnots were introduced into the footprints of where the CFL and the ATFL were to be anchored. The ATFL was then re-approximated to the distal aspect of the fibula under tension. Following this, these were hand-tied off. Stress views were taken at this time demonstrating a significant improvement in the ankle stability with anterior drawer maneuver as well as talar tilt. Following this, copious amounts of sterile saline were utilized to flush the surgical site, and 4-0 Monocryl and 3-0 nylon were utilized to coapt the subcutaneous and the skin edges in a simple interrupted buried-type fashion in a horizontal mattress-type fashion. Portal sites were closed utilizing simple interrupted. Following this, the left lower extremity was cleansed and dressing consisting of Betadine, Adaptic, 4 x 4's, Kerlix, ABD, and a well-padded posterior splint were applied to the patient's left lower extremity. The patient was then reversed from anesthesia and returned to the postoperative anesthesia care unit with vital signs stable and vascular status intact. The patient handled the anesthesia as well as the procedure without significant complication. Postoperative orders as indicated in the patient's discharge chart.
== END 2024-03-02 16:48 | disposition home or self-care (01) ==
LOC: SDC 10:26
PROVIDERS: ATTEND Podiatrist Foot & Ankle Surgery
DX: M65.872 Other synovitis and tenosynovitis, left ankle and foot (principal); M25.372 Other instability, left ankle; M25.572 Pain in left ankle and joints of left foot
CPT/HCPCS: 27698; 29898; 36415; 73610; 76000; 76937; 80047; 80053; 85025; 93005; C1713; J0171; J0330; J1885; J2250; J2405; J2704; J2795; J3010; A9270-GY

== ENCOUNTER 2024-03-08 13:03 | Day surgery (SDC) | payer OTHER ==
[2024-03-08] MEDS ORDERED: Depo-Medrol 40 MG/ML IM ONE (13:04)
[2024-03-08] MEDS ORDERED: BUPIVACAINE 0.5% VIAL IJ ONE (13:04)
[2024-03-08] MEDS ORDERED: XYLOCAINE-MPF 1% 5ML SDV IJ ONE (13:04)
[2024-03-08] MEDS ORDERED: Lactated Ringers 1,000 ML IV ONE (15:00)
[2024-03-08] MEDS ORDERED: DIPRIVAN 200 MG/20 ML IV ONE (15:07)
--- NOTE | 2024-03-08 16:33 | XRAY ---
Indication: Left T9-T11 RFA. Intraoperative fluoroscopy provided for 22 seconds. 4 digital spot images submitted for interpretation demonstrates posterior needle tips projecting over the expected left T9-T11 nerve roots. Correlate with intraoperative findings/report.
--- NOTE | 2024-03-09 09:26 | XRAY ---
22 seconds of fluoroscopy was used in surgery for a left T9-T11 RFA.
== END 2024-03-08 15:50 | disposition home or self-care (01) ==
LOC: SDC-PAIN 13:03
PROVIDERS: ATTEND Psychiatry & Neurology Pain Medicine
DX: M47.816 Spondylosis without myelopathy or radiculopathy, lumbar region (principal)
CPT/HCPCS: 64633; 64634; 72072; 77002; J1010; J2704

== ENCOUNTER 2024-03-15 10:51 | Day surgery (SDC) | payer OTHER ==
[2024-03-15] MEDS ORDERED: Depo-Medrol 40 MG/ML IM ONE (10:52)
[2024-03-15] MEDS ORDERED: LIDOCAINE HCL 1% 50 MG/5 ML VL PF IJ ONE (10:52)
[2024-03-15] MEDS ORDERED: BUPIVACAINE 0.5% VIAL IJ ONE (10:52)
[2024-03-15] MEDS ORDERED: DIPRIVAN 200 MG/20 ML IV ONE (13:24)
[2024-03-15] MEDS ORDERED: Lactated Ringers 1,000 ML IV ONE (14:05)
--- NOTE | 2024-03-15 15:04 | XRAY ---
Indication: Right T9-T11 RFA. Intraoperative fluoroscopy provided for 22 seconds. 3 digital spot image submitted for interpretation demonstrates posterior needle tips projecting over the expected right T9-T11 nerve roots. Correlate with intraoperative findings/report.
--- NOTE | 2024-03-15 16:51 | XRAY ---
22 seconds of fluoroscopy was used in surgery for a right T9-T11 RFA.
== END 2024-03-15 14:00 | disposition home or self-care (01) ==
LOC: SDC-PAIN 10:51
PROVIDERS: ATTEND Psychiatry & Neurology Pain Medicine
DX: M47.816 Spondylosis without myelopathy or radiculopathy, lumbar region (principal)
CPT/HCPCS: 64633; 64634; 72072; 77002; J1010; J2001; J2704

== ENCOUNTER 2024-05-21 11:43 | Emergency (ER) | payer OTHER ==
[2024-05-21 13:38] VITALS: BP 108/75; PULSE 84; TEMP 97.4; O2SAT 98
--- NOTE | 2024-05-21 14:04 | ERPHSYRPT ---
- History of Present Illness Time Seen by Provider: 05/21/24 14:03 Source: patient Exam Limitations: no limitations Patient Subjective Stated Complaint: Pt was walking yesterday and felt a "Pop" in her right knee and felt like her knee cap moved on her Triage Nursing Assessment: Pt was brought to the ER by her boyfriend, betty gardner, rates pain as 8/10, pulses normal, skin n/w/d, no bruising or swelling noted, pt has a hx of RA in the right knee and has also pulled her ligaments behind that knee earlier this year Physician History: The patient, with a history of ligament tear and subsequent surgery in the knee, presented with acute knee pain following an incident where the kneecap 'popped' and felt like it moved sideways. This occurred while walking from the car to the apartment. Since the incident, the patient has been experiencing shooting pain down the calf, up the thigh, and behind the kneecap. The knee swelled up after the incident. The patient has had similar incidents in the past, leading to a ligament tear and surgery. The patient has been using a brace, but it does not provide support to the kneecap and was therefore not effective in alleviating the pain. The patient also reported that the knee is 'awfully loose' and frequently grinds and pops, causing pain during squatting movements such as sitting on the toilet. The patient has been receiving injections for the knee from another doctor at a [facility] clinic, the most recent of which was two weeks prior to this consultation. The patient has also been informed by the other doctor that the arthritis in the knee is severe and a knee replacement is needed, but they are trying to delay the procedure due to the patient's young age. The patient has been managing the pain with [id number] ibuprofen, which has not been very effective. The patient has not recently undergone therapy for the knee to strengthen it. Method of Injury: twisted Occurred: yesterday Quality: constant, throbbing Severity of Pain-Max: severe Severity of Pain-Current: moderate Lower Extremities Pain: knee: right Modifying Factors: Improves With: rest. Worsens With: movement Associated Symptoms: popping sensation Allergies/Adverse Reactions: Penicillins Allergy (Verified 05/21/24 13:40) Sulfa (Sulfonamide Antibiotics) Allergy (Verified 05/21/24 13:40) Home Medications: Fexofenadine HCl [Kassi Allergy] 1 tab PO DAILY 11/02/23 [History] Levetiracetam [Keppra] 1,500 mg PO BID 11/02/23 [History] Montelukast Sodium 10 mg [Singulair 10 MG] 10 mg PO DAILY 11/02/23 [History] Butalbital/Acetaminophen [Butalbital-Acetaminophn 50-300] 1 each PO Q4HPRN PRN 02/29/24 [History] EPINEPHrine [Epipen 0.3 MG] 0.3 mg IJ Q12H PRN PRN 02/29/24 [History] Magnesium Oxide [Magnesium] 400 mg PO DAILY 02/29/24 [History] Metoprolol Succinate 25 mg Xl* [Toprol-Xl 25MG Tablets] 25 mg PO DAILY 02/29/24 [History] Quetiapine Fumarate 100 mg [Seroquel 100 MG] 25 mg PO HS 02/29/24 [History] Rizatriptan Benzoate [Rizatriptan] 10 mg PO UD PRN 02/29/24 [History] Gabapentin [Neurontin ] 300 mg PO DAILY 05/21/24 [History] Paliperidone [Paliperidone ER] 3 mg PO DAILY 05/21/24 [History] Topiramate 50 mg PO BID 05/21/24 [History] Hx Tetanus, Diphtheria Vaccination/Date Given: (a year or 2 ago) Hx Influenza Vaccination/Date Given: Yes Hx Pneumococcal Vaccination/Date Given: No Immunizations Up to Date: Yes Travel Risk - International Travel Have you traveled outside of the country in past 3 weeks: No - Emerging Infectious Disease Are you exhibiting symptoms associated with any current EIDs: No - Review of Systems All Other Systems: Reviewed and Negative - Past Medical History Pertinent Past Medical History: Yes Neurological History: Migraines, Seizures ENT History: No Pertinent History Cardiac History: Hypertension Respiratory History: Asthma Endocrine Medical History: No Pertinent History Musculoskeletal History: Osteoarthritis, Rheumatoid Arthritis GI Medical History: Crohns Disease, GERD History: No Pertinent History Psycho-Social History: Anxiety, Attention Deficit Disorder, Bipolar, Depression Female Reproductive Disorders: Endometriosis Other Medical History: CHRONIC MIGRAINES. OA IN SPINE AND RA IN THE KNEE. 2 BACK SURGERIES. - Past Surgical History Past Surgical History: Yes Neuro Surgical History: No Pertinent History Cardiac: No Pertinent History Respiratory: No Pertinent History Gastrointestinal: No Pertinent History Genitourinary: No Pertinent History Musculoskeletal: Other Female Surgical History: Hysterectomy Other Surgical History: sinus, left elbow, right wrist, breast reduction - Female History Hx Now: No (hysterectomy) - Social History Smoking Status: Never smoker Exposure to second hand smoke: No Drug Use: none Patient Lives Alone: No - Social Determinants of Health Will the patient participate in the screening: Yes Do you worry about a steady place to live?: No Do you have any problems with any of the following?: No known problems In the past 12 months,have you had to go without utilities?: No Transportation Issues: No Has anyone in your support network made you feel unsafe?: No Have you or anyone in your house had to go without enough: No - Nursing Vital Signs Nursing Vital Signs: Initial Vital Signs Temperature 97.4 F 05/21/24 13:32 Pulse Rate 84 05/21/24 13:32 Blood Pressure 108/75 05/21/24 13:32 O2 Sat by Pulse Oximetry 98 05/21/24 13:32 Pain Scale Pain Intensity 8 - Physical Exam General Appearance: no apparent distress SpO2: 98 Comments: Right knee Inspection: No obvious deformity, no swelling + lateral patella TTP ROM: -5 to 130 Crepitus: + Candelario: - Anterior Drawer: - Posterior Drawer: - Varus stress: - Valgus stress: - Miguel: - Thessaly: - Patellar Grind: + J-Sign: - Extensor Lag: - Chris: + Patellar Apprehension: + Effusion: - Strength LE: 5/5 EHL, tibialis anterior, plantar flexion Sensation: Subjective normal distal sensation Vasculature: <2 second capillary refill LE Skin: no redness, no warmth, no ecchymosis, no rash - Course Nursing assessment & vital signs reviewed: Yes - Radiology Exams Right Knee X-ray Interpretation: Interpreted by me, No Fracture Ordered Tests: Medication Summary Discontinued Medications Generic Name Dose Route Start Last Admin Trade Name Freq PRN Reason Stop Dose Admin Diclofenac Sodium 75 mg 05/21/24 13:58 05/21/24 14:25 Diclofenac Sodium 50 Mg Tablet.Ec PO 05/21/24 13:59 75 mg ONCE ONE Administration - Progress Progress: unchanged Progress Note: Concern for patellar instability of right knee. Recommended patella stabilizing knee brace. Diclofenac prescribed. Recommended f/u with her orthopedist. Counseled pt/family regarding: diagnosis, need for follow-up, rad results Medical Desision Making - Diagnostic Testing Diagnostic test were ordered, analyzed, and reviewed by me: Yes Radiological Interpretation: Interpreted by me - Risk of complications The pt has a mod risk of morbidity or mortality based on: Need for prescription drug management - Departure Departure Disposition: Home Clinical Impression: Lateral subluxation of right patella, Right knee pain Condition: Good Critical Care Time: No Referrals: GEROGE HOFF MD [Primary Care Provider] - Follow up/PCP as directed Instructions: Knee Pain (DC) Prescriptions: Diclofenac Sodium 75 mg PO BID PRN 14 Days #28 PRN Reason: Pain Diclofenac Sodium 50 mg [Voltaren 50 mg] 50 mg PO BID PRN 14 Days #28 tablet PRN Reason: Pain
[2024-05-21] MEDS: VOLTAREN 50 MG PO ONE (14:25)
--- NOTE | 2024-05-21 19:33 | XRAY ---
Indication: Pain. Comparison: October 05, 2022 4 view right knee unchanged again demonstrating osteopenia, minimal medial joint narrowing/spurring, minimal lateral patella tilting, and old proximal fibula fracture. No new/acute abnormalities.
== END 2024-05-21 14:57 | disposition home or self-care (01) ==
LOC: ED 11:43
DX: S83.011A Lateral subluxation of right patella, initial encounter (principal); M25.561 Pain in right knee; I10 Essential (primary) hypertension; Z79.899 Other long term (current) drug therapy
CPT/HCPCS: 73564; 99282; A9270-GY

== ENCOUNTER 2024-10-27 13:16 | Emergency (ER) | payer OTHER ==
--- NOTE | 2024-10-27 13:33 | ERPHSYRPT ---
- History of Present Illness Time Seen by Provider: 10/27/24 13:33 Source: patient, family Exam Limitations: no limitations Physician History: This is an overweight 44-year-old white female patient who arrives by private vehicle accompanied by friend and is a patient of Dr. Hoff with complaints of first dizziness followed by migraine headache and brief visual changes. Patient also has loss of balance. Patient states that this is typical pattern for her when she has a migraine headache. Patient states that the pattern starts in the middle of her forehead and travels to the left side around her left eye socket and then is generalized throbbing and aching. Patient states this occurred at work. Patient is under a lot of stress per her report and she also states that her car alternator went out and that was very stressful. This occurred recently on top of her financial stressors. Patient has a history of migraine headaches, seizure disorder, hypertension, asthma, Crohn's disease, gastroesophageal reflux disease, anxiety, depression and bipolar disorder. Timing/Duration: today Severity: moderate Character of Deficits: none Deficits: off balance (Earlier today but not now) Baseline/Normal Cognition: alert 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 Current Cognition: alert 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 Baseline Gait: walks w/o assistance Associated Symptoms: vision changes (Brief and completely resolved), headache, No chest pain Allergies/Adverse Reactions: Penicillins Allergy (Verified 10/27/24 13:43) Sulfa (Sulfonamide Antibiotics) Allergy (Verified 10/27/24 13:43) Home Medications: Fexofenadine HCl [Kassi Allergy] 1 tab PO DAILY 11/02/23 [History] Levetiracetam [Keppra] 1,500 mg PO BID 11/02/23 [History] Montelukast Sodium 10 mg [Singulair 10 MG] 10 mg PO DAILY 11/02/23 [History] EPINEPHrine [Epipen 0.3 MG] 0.3 mg IJ Q12H PRN PRN 02/29/24 [History] Quetiapine Fumarate 100 mg [Seroquel 100 MG] 100 mg PO HS 02/29/24 [History] Rizatriptan Benzoate [Rizatriptan] 10 mg PO UD PRN 02/29/24 [History] Gabapentin [Neurontin ] 300 mg PO DAILY 05/21/24 [History] Topiramate 50 mg PO BID 05/21/24 [History] Hx Tetanus, Diphtheria Vaccination/Date Given: (a year or 2 ago) Hx Influenza Vaccination/Date Given: Yes Hx Pneumococcal Vaccination/Date Given: No Travel Risk - International Travel Have you traveled outside of the country in past 3 weeks: No - Emerging Infectious Disease Are you exhibiting symptoms associated with any current EIDs: No - Review of Systems Constitutional: No Symptoms Eyes: No Symptoms Ears, Nose, & Throat: No Symptoms Respiratory: No Symptoms Cardiac: No Symptoms Abdominal/Gastrointestinal: No Symptoms Genitourinary Symptoms: No Symptoms Musculoskeletal: No Symptoms Skin: No Symptoms Neurological: Dizziness, Headache Psychological: No Symptoms Endocrine: No Symptoms Hematologic/Lymphatic: No Symptoms Immunological/Allergic: No Symptoms All Other Systems: Reviewed and Negative - Past Medical History Pertinent Past Medical History: Yes Neurological History: Migraines, Seizures ENT History: No Pertinent History Cardiac History: Hypertension Respiratory History: Asthma Endocrine Medical History: No Pertinent History Musculoskeletal History: Osteoarthritis, Rheumatoid Arthritis GI Medical History: Crohns Disease, GERD History: No Pertinent History Psycho-Social History: Anxiety, Attention Deficit Disorder, Bipolar, Depression Female Reproductive Disorders: Endometriosis Other Medical History: CHRONIC MIGRAINES. OA IN SPINE AND RA IN THE KNEE. 2 BACK SURGERIES. - Past Surgical History Past Surgical History: Yes Neuro Surgical History: No Pertinent History Cardiac: No Pertinent History Respiratory: No Pertinent History Gastrointestinal: No Pertinent History Genitourinary: No Pertinent History Musculoskeletal: Other Female Surgical History: Hysterectomy Other Surgical History: sinus, left elbow, right wrist, breast reduction - Social History Smoking Status: Never smoker Exposure to second hand smoke: No Drug Use: none Patient Lives Alone: No - Social Determinants of Health Will the patient participate in the screening: Yes Do you worry about a steady place to live?: No In the past 12 months,have you had to go without utilities?: No Transportation Issues: No Has anyone in your support network made you feel unsafe?: No Have you or anyone in your house had to go without enough: No Comment: requesting assistance with mold issue - Nursing Vital Signs Nursing Vital Signs: Initial Vital Signs Temperature 97.3 F 10/27/24 13:32 Pulse Rate 94 H 10/27/24 13:32 Respiratory Rate 16 10/27/24 13:32 Blood Pressure 138/95 10/27/24 13:32 O2 Sat by Pulse Oximetry 97 02/07/25 13:32 Pain Scale Pain Intensity 7 - [place] Coma Scale Best Eye Response ([place]): (4) open spontaneously Best Verbal Response (Emre): (5) oriented Best Motor Response ([place]): (6) obeys commands [place] Total: 15 - Physical Exam General Appearance: no apparent distress, alert, anxiety Eye Exam: bilateral eye: normal inspection Ears, Nose, Throat Exam: normal ENT inspection, moist mucous membranes Neck Exam: normal inspection, non-tender, supple, full range of motion Respiratory: normal breath sounds, lungs clear, airway intact, No chest tenderness, No respiratory distress Cardiovascular: regular rate/rhythm, normal heart sounds, normal peripheral pulses Gastrointestinal: soft, normal bowel sounds, No tenderness Pelvic Exam: not done Rectal Exam: not done Back Exam: normal inspection, normal range of motion, No CVA tenderness, No v ertebral tenderness Extremity Exam: normal inspection, normal range of motion, pelvis stable 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, 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, 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 Exam: normal hearing, normal speech, PERRL Coordination/Gait: normal finger to nose, normal gait, normal cerebellar function Motor/Sensory: no motor deficit, no sensory deficit, no pronator drift Skin Exam: normal color, warm, dry SpO2 Interpretation: normal O2 Delivery: Room Air - Course Nursing assessment & vital signs reviewed: Yes Ordered Tests: Active Orders 24 hr Category Date Time Status EKG-ER Only STAT Care 10/27/24 13:45 Active IV Insertion STAT Care 10/27/24 13:45 Active HEAD WITHOUT CONTRAST [CT] Stat Exams 10/27/24 13:45 Completed CBC W DIFF Stat Lab 10/27/24 13:49 Completed CMP Stat Lab 10/27/24 13:49 Completed CULTURE,URINE Stat Lab 10/27/24 13:49 Received ETHYL ALCOHOL Stat Lab 10/27/24 13:49 Completed MAGNESIUM Stat Lab 10/27/24 13:49 Completed MONO SCREEN Stat Lab 10/27/24 13:49 Completed UA W/RFX UR CULTURE Stat Lab 10/27/24 13:49 Completed Medication Summary Generic Name Dose Route Start Last Admin Trade Name Freq PRN Reason Stop Dose Admin Sodium Chloride 1,000 mls @ 100 mls/hr 10/27/24 13:45 10/27/24 13:54 Sodium Chloride 0.9% 1000 Ml IV 11/26/24 13:44 100 mls/hr .Q10H ANTONIO Administration Discontinued Medications Generic Name Dose Route Start Last Admin Trade Name Ck PRN Reason Stop Dose Admin Hydromorphone HCl 1 mg 10/27/24 15:02 10/27/24 15:05 Hydromorphone 1 Mg/1ml Inj IV 10/27/24 15:03 1 mg STAT ONE Administration Hydromorphone HCl Confirm 10/27/24 15:04 Hydromorphone 1 Mg/1ml Inj Administered 10/27/24 15:05 Dose 1 mg .ROUTE .STK-MED ONE Ondansetron HCl 4 mg 10/27/24 13:45 10/27/24 13:54 Ondansetron Hcl 4 Mg/2 Ml Vial IV 10/27/24 13:46 4 mg STAT ONE Administration Ondansetron HCl Confirm 10/27/24 13:51 Ondansetron Hcl 4 Mg/2 Ml Vial Administered 10/27/24 13:52 Dose 4 mg .ROUTE .STK-MED ONE Potassium Chloride 10 meq 10/27/24 15:08 10/27/24 15:13 Potassium Chloride Tab 10 Meq Tab PO 10/27/24 15:09 10 meq STAT ONE Administration Potassium Chloride Confirm 10/27/24 15:12 Potassium Chloride Tab 10 Meq Tab Administered 10/27/24 15:13 Dose 10 meq .ROUTE .STK-MED ONE Lab/Rad Data: Laboratory Result Diagrams 10/27/24 13:49 10/27/24 13:49 Laboratory Results 10/27/24 10/27/24 10/27/24 Range/Units 14:05 13:49 13:49 WBC (3.98-10.04) x10^3/uL RBC (3.93-5.22) x10^6/uL Hgb (11.2-15.7) g/dL Hct (34.1-44.9) % MCV (79.4-94.8) fL MCH (25.6-32.2) pg MCHC (32.2-35.5) g/dL RDW (11.7-14.4) % Plt Count (182-369) x10^3/uL MPV (9.4-12.3) fL Gran % (34.0-71.1) % Immature Gran % (Auto) (0.001-0.429) % Nucleat RBC Rel Count (0.00-0.2) % Eos # (Auto) (0.04-0.36) x10^3/uL Immature Gran # (Auto) (0.001-0.031) x10^3u/L Absolute Lymphs (auto) (1.18-3.74) x10^3/uL Absolute Monos (auto) (0.24-0.86) x10^3/uL Absolute Nucleated RBC (0.00-0.012) x10^3u/L Lymphocytes % (19.3-51.7) % Monocytes % (4.7-12.5) % Eosinophils % (0.7-5.8) % Basophils % (0.1-1.2) % Absolute Granulocytes (1.56-6.13) x10^3/uL Basophils # (0.01-0.08) x10^3/uL Sodium 143 (135-145) mmol/L Potassium 3.4 L (3.5-5.1) mmol/L Chloride 113 H (98-107) mmol/L Carbon Dioxide 21 L (22-30) mmol/L Anion Gap 12.5 (5-15) MEQ/L BUN 9 (7-17) mg/dL Creatinine 0.79 (0.52-1.04) mg/dL Estimated GFR 94.5 ML/MIN Glucose 92 (74-106) mg/dL Calcium 8.9 (8.4-10.2) mg/dL Magnesium 2.3 (1.6-2.3) mg/dL Total Bilirubin 0.40 (0.2-1.3) mg/dL AST 37 H (14-36) U/L ALT 22 (0-35) U/L Alkaline Phosphatase 57 (38-126) U/L Serum Total Protein 6.3 (6.3-8.2) g/dL Albumin 3.7 (3.5-5.0) g/dL Urine Color (Yellow) Urine Appearance (Clear) Urine pH (4.6-8.0) Ur Specific [place] (1.005-1.030) Urine Protein (Negative) Urine Glucose (UA) (Negative) mg/dL Urine Ketones (Negative) Urine Blood (Negative) Urine Nitrite (Negative) Urine Bilirubin (Negative) Urine Urobilinogen (0.2) mg/dL Ur Leukocyte Esterase (Negative) U Hyaline Cast (Auto) (0-2) /LPF Urine Microscopic RBC (0-5) /HPF Urine Microscopic WBC (0-5) /HPF Ur Epithelial Cells (None Seen) /HPF Urine Bacteria (None Seen) /HPF Urine Culture Reflexed (NO) Ethyl Alcohol < 10 (0-10) mg/dL Monoscreen NEGATIVE (NEGATIVE) Influenza Type A Ag NEGATIVE (NEGATIVE) Influenza Type B Ag NEGATIVE (NEGATIVE) RSV (PCR) NEGATIVE (NEGATIVE) SARS-CoV-2 (PCR) NEGATIVE (NEGATIVE) 10/27/24 10/27/24 Range/Units 13:49 13:49 WBC 6.9 (3.98-10.04) x10^3/uL RBC 4.48 (3.93-5.22) x10^6/uL Hgb 13.7 (11.2-15.7) g/dL Hct 41.0 (34.1-44.9) % MCV 91.5 (79.4-94.8) fL MCH 30.6 (25.6-32.2) pg MCHC 33.4 (32.2-35.5) g/dL RDW 13.5 (11.7-14.4) % Plt Count 248 (182-369) x10^3/uL MPV 10.3 (9.4-12.3) fL Gran % 52.2 (34.0-71.1) % Immature Gran % (Auto) 0.3 (0.001-0.429) % Nucleat RBC Rel Count 0.0 (0.00-0.2) % Eos # (Auto) 0.06 (0.04-0.36) x10^3/uL Immature Gran # (Auto) 0.02 (0.001-0.031) x10^3u/L Absolute Lymphs (auto) 2.63 (1.18-3.74) x10^3/uL Absolute Monos (auto) 0.54 (0.24-0.86) x10^3/uL Absolute Nucleated RBC 0.00 (0.00-0.012) x10^3u/L Lymphocytes % 38.3 (19.3-51.7) % Monocytes % 7.9 (4.7-12.5) % Eosinophils % 0.9 (0.7-5.8) % Basophils % 0.4 (0.1-1.2) % Absolute Granulocytes 3.59 (1.56-6.13) x10^3/uL Basophils # 0.03 (0.01-0.08) x10^3/uL Sodium (135-145) mmol/L Potassium (3.5-5.1) mmol/L Chloride (98-107) mmol/L Carbon Dioxide (22-30) mmol/L Anion Gap (5-15) MEQ/L BUN (7-17) mg/dL Creatinine (0.52-1.04) mg/dL Estimated GFR ML/MIN Glucose (74-106) mg/dL Calcium (8.4-10.2) mg/dL Magnesium (1.6-2.3) mg/dL Total Bilirubin (0.2-1.3) mg/dL AST (14-36) U/L ALT (0-35) U/L Alkaline Phosphatase (38-126) U/L Serum Total Protein (6.3-8.2) g/dL Albumin (3.5-5.0) g/dL Urine Color Dark Yellow A (Yellow) Urine Appearance Cloudy A (Clear) Urine pH 5.5 (4.6-8.0) Ur Specific [place] >=1.030 A (1.005-1.030) Urine Protein 30 (Negative) Urine Glucose (UA) Negative (Negative) mg/dL Urine Ketones Trace A (Negative) Urine Blood Negative (Negative) Urine Nitrite Negative (Negative) Urine Bilirubin Small A (Negative) Urine Urobilinogen 0.2 (0.2) mg/dL Ur Leukocyte Esterase Moderate A (Negative) U Hyaline Cast (Auto) 11-20 (0-2) /LPF Urine Microscopic RBC 0-2 (0-5) /HPF Urine Microscopic WBC 21-50 A (0-5) /HPF Ur Epithelial Cells Many A (None Seen) /HPF Urine Bacteria Many A (None Seen) /HPF Urine Culture Reflexed YES (NO) Ethyl Alcohol (0-10) mg/dL Monoscreen (NEGATIVE) Influenza Type A Ag (NEGATIVE) Influenza Type B Ag (NEGATIVE) RSV (PCR) (NEGATIVE) SARS-CoV-2 (PCR) (NEGATIVE) - Progress Progress: improved, re-examined Progress Note: 10/27/24 14:22 My medical decision making and the assignment of moderate complexity is based on review of the patient's past medical history, review the patient's medication list, reviewed patient drug allergy list, history present illness and physical findings on examination. The workup in this patient includes placement of intravenous line, infusion of low rate crystalloid, infusion of Dilaudid, infusion of Zofran, CBC, CMP, CT scan of the head without contrast, urinalysis, viral swabs, twelve-lead EKG, monotest. Differential diagnosis includes but is not limited to viral illness, anxiety about health, emotional stressors, acute intracranial abnormalities, electrolyte abnormalities, urinary tract infection, migraine headache, dehydration 10/27/24 15:06 CT scan of the head without contrast was interpreted by the radiologist and I reviewed the impression. The impression states normal CT scan of the head without contrast. 10/27/24 15:48 I interpreted the patient's laboratory data results. Based on the laboratory data results, the patient has a urinary tract infection that is significant and likely the cause of most of her symptoms. Counseled pt/family regarding: lab results, diagnosis, need for follow-up, rad results Medical Desision Making - Independent Historian Additional History obtained from: Relative/friend - Diagnostic Testing Diagnostic test were ordered, analyzed, and reviewed by me: Yes Radiological Interpretation: Reviewed by me, Teleradiologist Report - Risk of complications The pt has a mod risk of morbidity or mortality based on: Need for prescription drug management - Departure Departure Disposition: Home Clinical Impression: Dizziness, Dehydration, UTI (urinary tract infection) Condition: Stable Critical Care Time: No Referrals: GEORGE HOFF MD [Primary Care Provider] - Follow up/PCP as directed Additional Instructions: Drink plenty of clear liquids before advancing your diet. Take your antibiotics and other medications as prescribed. Prescriptions: Ciprofloxacin [Cipro 500 MG] 500 mg PO BID #14 tablet
[2024-10-27 13:40] VITALS: TEMP 97.3
[2024-10-27] MEDS ORDERED: Sodium Chloride 0.9% 1000 ML 1,000 ML ONE (13:51)
[2024-10-27] MEDS ORDERED: Zofran 4 MG/2 ML VIAL ONE (13:51)
[2024-10-27] MEDS: Sodium Chloride 0.9% 1000 ML 1,000 ML IV SCH (13:54)
[2024-10-27] MEDS: Zofran 4 MG/2 ML VIAL IV ONE (13:54)
[2024-10-27 14:12] LABS: Absolute Neutrophil Ct (ANC) 3.59 x10^3/uL (1.56-6.13); BASOPHIL % 0.4 % (0.1-1.2); Basophil (Absolute #) 0.03 x10^3/uL (0.01-0.08); Eosinophil % 0.9 % (0.7-5.8); Eosinophil (Absolute #) 0.06 x10^3/uL (0.04-0.36); Hemoglobin 13.7 g/dL (11.2-15.7); IMMATURE GRAN # 0.02 x10^3u/L (0.001-0.031); IMMATURE GRAN % 0.3 % (0.001-0.429); Lymphocyte (Absolute #) 2.63 x10^3/uL (1.18-3.74); Lymphocytes % 38.3 % (19.3-51.7); Mean Cell Volume 91.5 fL (79.4-94.8); Mean Corpuscular Hemoglobin 30.6 pg (25.6-32.2); Mean Corpuscular Hgb Concent. 33.4 g/dL (32.2-35.5); Mean Platelet Volume 10.3 fL (9.4-12.3); Monocyte (Absolute #) 0.54 x10^3/uL (0.24-0.86); Monocytes % 7.9 % (4.7-12.5); Neutrophil % 52.2 % (34.0-71.1); Platelet Count 248 x10^3/uL (182-369); Red Blood Count 4.48 x10^6/uL (3.93-5.22); Red Cell Distribution Width 13.5 % (11.7-14.4); White Blood Count 6.9 x10^3/uL (3.98-10.04)
[2024-10-27 14:27] LABS: ALBUMIN 3.7 g/dL (3.5-5.0); ALKALINE PHOSPHATASE 57 U/L (38-126); ANION GAP 12.5 MEQ/L (5-15); BLOOD UREA NITROGEN 9 mg/dL (7-17); CHLORIDE 113 mmol/L (98-107); Calcium 8.9 mg/dL (8.4-10.2); Carbon Dioxide 21 mmol/L (22-30); Creatinine 1 0.79 mg/dL (0.52-1.04); EST GLOMERULAR FILTRATION RATE 94.5 ML/MIN; ETHYL ALCOHOL < 10 mg/dL (0-10); Glucose 92 mg/dL (74-106); MAGNESIUM 2.3 mg/dL (1.6-2.3); Potassium 3.4 mmol/L (3.5-5.1); SGOT/AST 37 U/L (14-36); SGPT/ALT 22 U/L (0-35); SODIUM 143 mmol/L (135-145); Total Protein 6.3 g/dL (6.3-8.2)
[2024-10-27 14:45] LABS: Appearance Cloudy (Clear); Bacteria Many /HPF (None Seen); Bilirubin Small (Negative); Blood Negative (Negative); Epithelial Cells Many /HPF (None Seen); Glucose, Urine Negative (Negative); Ketones Trace (Negative); Leukocyte Esterase Moderate (Negative); Nitrite Negative (Negative); Ph 5.5 (4.6-8.0); Protein,Urine Dip 30 (Negative); RBC 0-2 /HPF (0-5); Specific Gravity >=1.030 (1.005-1.030); Urobilinogen 0.2 mg/dL (0.2); WBC 21-50 /HPF (0-5)
[2024-10-27 14:53] LABS: INFLUENZA A NEGATIVE (NEGATIVE); INFLUENZA B NEGATIVE (NEGATIVE); RESPIRATORY SYNCTIAL VIRUS NEGATIVE (NEGATIVE); SARS-CoV-2 Xpert Express NEGATIVE (NEGATIVE)
--- NOTE | 2024-10-27 14:59 | XRAY ---
Indication: Severe headache and dizziness. Multiple contiguous axial images obtained through the head without contrast. Comparison: May 26, 2022 Normal appearing brain parenchyma, ventricles, and bony calvarium. Visualized paranasal sinuses and mastoid air cells are clear. Impression: Continued normal CT head without contrast exam.
[2024-10-27] MEDS ORDERED: Hydromorphone 1 mg/ml Injection ONE (15:04)
[2024-10-27] MEDS: Hydromorphone 1 mg/ml Injection IV ONE (15:05)
[2024-10-27] MEDS ORDERED: Klor Con ONE (15:12)
[2024-10-27] MEDS: Klor Con PO ONE (15:13)
[2024-10-27] MEDS ORDERED: Levofloxacin 500 MG Tablet ONE (15:58)
[2024-10-27] MEDS: Levofloxacin 500 MG Tablet PO ONE (15:59)
[2024-10-27 16:02] VITALS: BP 119/72; PULSE 73; RESP 20; O2SAT 100
== END 2024-10-27 16:15 | disposition home or self-care (01) ==
LOC: ED 13:16
DX: R42 Dizziness and giddiness (principal); E86.0 Dehydration; N39.0 Urinary tract infection, site not specified; G43.909 Migraine, unspecified, not intractable, without status migrainosus; I10 Essential (primary) hypertension; Z79.899 Other long term (current) drug therapy
CPT/HCPCS: 0241U; 36415; 70450; 80053; 81001; 82077; 83735; 85025; 86308; 87086; 93005; 96374; 96375; 99285; J1171; J2405; A9270-GY

== ENCOUNTER 2024-12-05 09:37 | Emergency (ER) | payer OTHER ==
--- NOTE | 2024-12-05 09:39 | ERPHSYRPT ---
- History of Present Illness Time Seen by Provider: 12/05/24 09:39 Source: patient, family Exam Limitations: no limitations Physician History: This is a 44-year-old white female patient of Dr. Hoff who presents by private vehicle accompanied by friend with a complaint of severe headache that began at 7:00 this morning. The headache has persisted despite taking her medications. Patient's dates that her pain is similar in location and type as her usual migraine headaches. However, her headache pain is much more intense. She did not suffer any acute fall or traumatic injury. Patient has a history of seizure disorder, hypertension, asthma, Crohn's disease, gastroesophageal reflux disease, anxiety, depression, bipolar disorder and rheumatoid arthritis. Per lobito poe report, her neurologist wants a Keppra level drawn. This is a send out lab test. I ordered it and it will be sent out and her neurologist and primary care provider can follow-up on the study. In addition, she stated that Dr. Hoff wanted some basic labs drawn so I did order those as well. Timing/Duration: today Head Pain Location: global Severity of Pain-Max: moderate Severity of Pain-Current: moderate Recent Head Trauma: chronic headaches Modifying Factors: Improves With: exposure to light, noise Associated Symptoms: sensitive to light, No confusion, No neck pain, No speech problems, No stiff neck, No trouble walking, No visual disturbance Previous symptoms: same symptoms as today, no recent treatment Allergies/Adverse Reactions: Penicillins Allergy (Verified 10/27/24 13:43) Sulfa (Sulfonamide Antibiotics) Allergy (Verified 10/27/24 13:43) Home Medications: Fexofenadine HCl [Kassi Allergy] 1 tab PO DAILY 11/02/23 [History] Levetiracetam [Keppra] 1,500 mg PO BID 11/02/23 [History] Montelukast Sodium 10 mg [Singulair 10 MG] 10 mg PO DAILY 11/02/23 [History] EPINEPHrine [Epipen 0.3 MG] 0.3 mg IJ Q12H PRN PRN 02/29/24 [History] Quetiapine Fumarate 100 mg [Seroquel 100 MG] 100 mg PO HS 02/29/24 [History] Rizatriptan Benzoate [Rizatriptan] 10 mg PO UD PRN 02/29/24 [History] Gabapentin [Neurontin ] 300 mg PO DAILY 05/21/24 [History] Topiramate 100 mg PO BID 05/21/24 [History] Gabapentin 600 mg PO HS 12/05/24 [History] Sertraline HCl 50 mg [Zoloft 50 mg Tablet] 50 mg PO DAILY 12/05/24 [History] Simvastatin 10 mg [Zocor 10MG] 10 mg PO DAILY 12/05/24 [History] Hx Tetanus, Diphtheria Vaccination/Date Given: (a year or 2 ago) Hx Influenza Vaccination/Date Given: Yes Hx Pneumococcal Vaccination/Date Given: No Travel Risk - International Travel Have you traveled outside of the country in past 3 weeks: No - Emerging Infectious Disease Are you exhibiting symptoms associated with any current EIDs: No - Review of Systems Constitutional: No Symptoms Eyes: No Symptoms Ears, Nose, & Throat: No Symptoms Respiratory: No Symptoms Cardiac: No Symptoms Abdominal/Gastrointestinal: No Symptoms Genitourinary Symptoms: No Symptoms Musculoskeletal: No Symptoms Skin: No Symptoms Neurological: Headache Psychological: No Symptoms Endocrine: No Symptoms Hematologic/Lymphatic: No Symptoms Immunological/Allergic: No Symptoms All Other Systems: Reviewed and Negative - Past Medical History Pertinent Past Medical History: Yes Neurological History: Migraines, Seizures ENT History: No Pertinent History Cardiac History: Hypertension Respiratory History: Asthma Endocrine Medical History: No Pertinent History Musculoskeletal History: Osteoarthritis, Rheumatoid Arthritis GI Medical History: Crohns Disease, GERD History: No Pertinent History Psycho-Social History: Anxiety, Attention Deficit Disorder, Bipolar, Depression Female Reproductive Disorders: Endometriosis Other Medical History: CHRONIC MIGRAINES. OA IN SPINE AND RA IN THE KNEE. 2 BACK SURGERIES. - Past Surgical History Past Surgical History: Yes Neuro Surgical History: No Pertinent History Cardiac: No Pertinent History Respiratory: No Pertinent History Gastrointestinal: No Pertinent History Genitourinary: No Pertinent History Musculoskeletal: Other Female Surgical History: Hysterectomy Other Surgical History: sinus, left elbow, right wrist, breast reduction - Female History Hx Last Menstrual Period: 2007 - Social History Smoking Status: Never smoker Exposure to second hand smoke: No Drug Use: none Patient Lives Alone: No - Social Determinants of Health Will the patient participate in the screening: Yes Do you worry about a steady place to live?: No In the past 12 months,have you had to go without utilities?: No Transportation Issues: No Has anyone in your support network made you feel unsafe?: No Have you or anyone in your house had to go w/o enough food: No Comment: requesting assistance with mold issue - Nursing Vital Signs Nursing Vital Signs: Initial Vital Signs Temperature 97.7 F 12/05/24 09:43 Pulse Rate 83 12/05/24 09:43 Respiratory Rate 20 12/05/24 09:43 Blood Pressure 148/92 12/05/24 09:43 O2 Sat by Pulse Oximetry 99 12/05/24 09:43 Pain Scale Pain Intensity 10 - Physical Exam General Appearance: no apparent distress, alert, anxiety Eye Exam: PERRL/EOMI, eyes nml inspection Ears, Nose, Throat Exam: normal ENT inspection, moist mucous membranes Neck Exam: normal inspection, non-tender, supple, full range of motion Respiratory Exam: normal breath sounds, lungs clear, airway intact, No chest tenderness, No respiratory distress Cardiovascular Exam: regular rate/rhythm, normal heart sounds, normal peripheral pulses Gastrointestinal/Abdominal Exam: No tenderness Back Exam: normal inspection, normal range of motion, No CVA tenderness, No vertebral tenderness Extremity Exam: normal inspection, normal range of motion, pelvis stable Mental Status Exam: 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, 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, 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 Exam: normal hearing, normal speech Coordination/Gait Exam: normal finger to nose, normal gait, normal cerebellar function Motor/Sensory Exam: no motor deficit, no sensory deficit Skin Exam: normal color, warm, dry Lymphatic Exam: No adenopathy SpO2 Interpretation: normal O2 Delivery: Room Air - Course Nursing assessment & vital signs reviewed: Yes Ordered Tests: Active Orders 24 hr Category Date Time Status Clean Catch Urine Specimen STAT Care 12/05/24 10:10 Active HEAD WITHOUT CONTRAST [CT] Stat Exams 12/05/24 10:48 Completed BMP Stat Lab 12/05/24 11:03 Completed CBC W DIFF Stat Lab 12/05/24 11:03 Completed UA W/RFX UR CULTURE Stat Lab 12/05/24 10:11 Completed Urine Triage Profile Stat Lab 12/05/24 10:12 Completed Medication Summary Discontinued Medications Generic Name Dose Route Start Last Admin Trade Name Freq PRN Reason Stop Dose Admin Diphenhydramine HCl 25 mg 12/05/24 11:23 12/05/24 11:41 Diphenhydramine Hcl 50 Mg/Ml Vial IM 12/05/24 11:24 25 mg STAT ONE Administration Diphenhydramine HCl Confirm 12/05/24 11:30 Diphenhydramine Hcl 50 Mg/Ml Vial Administered 12/05/24 11:31 Dose 50 mg .ROUTE .STK-MED ONE Hydromorphone HCl 0.5 mg 12/05/24 11:23 12/05/24 11:44 Hydromorphone 1 Mg/1ml Inj IM 12/05/24 11:24 0.5 mg STAT ONE Administration Hydromorphone HCl Confirm 12/05/24 11:34 Hydromorphone 1 Mg/1ml Inj Administered 12/05/24 11:35 Dose 1 mg .ROUTE .STK-MED ONE Ketorolac Tromethamine 60 mg 12/05/24 11:23 12/05/24 11:47 Ketorolac Tromethamine 30 Mg/Ml Inj IM 12/05/24 11:24 60 mg STAT ONE Administration Ketorolac Tromethamine Confirm 12/05/24 11:30 Ketorolac Tromethamine 30 Mg/Ml Inj Administered 12/05/24 11:31 Dose 60 mg .ROUTE .STK-MED ONE Prochlorperazine Edisylate 5 mg 12/05/24 11:23 12/05/24 11:42 Prochlorperazine Edisylate 10 Mg/2 Ml Vial IM 12/05/24 11:24 5 mg STAT ONE Administration Prochlorperazine Edisylate Confirm 12/05/24 11:34 Prochlorperazine Edisylate 10 Mg/2 Ml Vial Administered 12/05/24 11:35 Dose 10 mg .ROUTE .STK-MED ONE Lab/Rad Data: Laboratory Result Diagrams 12/05/24 11:03 12/05/24 11:03 Laboratory Results 12/05/24 12/05/24 12/05/24 Range/Units 11:03 11:03 10:12 WBC 7.7 (3.98-10.04) x10^3/uL RBC 4.60 (3.93-5.22) x10^6/uL Hgb 13.8 (11.2-15.7) g/dL Hct 42.9 (34.1-44.9) % MCV 93.3 (79.4-94.8) fL MCH 30.0 (25.6-32.2) pg MCHC 32.2 (32.2-35.5) g/dL RDW 13.7 (11.7-14.4) % Plt Count 250 (182-369) x10^3/uL MPV 9.8 (9.4-12.3) fL Gran % 55.9 (34.0-71.1) % Immature Gran % (Auto) 0.3 (0.001-0.429) % Nucleat RBC Rel Count 0.0 (0.00-0.2) % Eos # (Auto) 0.06 (0.04-0.36) x10^3/uL Immature Gran # (Auto) 0.02 (0.001-0.031) x10^3u/L Absolute Lymphs (auto) 2.76 (1.18-3.74) x10^3/uL Absolute Monos (auto) 0.52 (0.24-0.86) x10^3/uL Absolute Nucleated RBC 0.00 (0.00-0.012) x10^3u/L Lymphocytes % 35.8 (19.3-51.7) % Monocytes % 6.7 (4.7-12.5) % Eosinophils % 0.8 (0.7-5.8) % Basophils % 0.5 (0.1-1.2) % Absolute Granulocytes 4.31 (1.56-6.13) x10^3/uL Basophils # 0.04 (0.01-0.08) x10^3/uL Sodium 144 (135-145) mmol/L Potassium 3.9 (3.5-5.1) mmol/L Chloride 112 H (98-107) mmol/L Carbon Dioxide 22 (22-30) mmol/L Anion Gap 13.5 (5-15) MEQ/L BUN 13 (7-17) mg/dL Creatinine 0.76 (0.52-1.04) mg/dL Estimated GFR 99.0 ML/MIN Glucose 82 (74-106) mg/dL Calcium 9.5 (8.4-10.2) mg/dL Urine Color (Yellow) Urine Appearance (Clear) Urine pH (4.6-8.0) Ur Specific [place] (1.005-1.030) Urine Protein (Negative) Urine Glucose (UA) (Negative) mg/dL Urine Ketones (Negative) Urine Blood (Negative) Urine Nitrite (Negative) Urine Bilirubin (Negative) Urine Urobilinogen (0.2) mg/dL Ur Leukocyte Esterase (Negative) U Hyaline Cast (Auto) (0-2) /LPF Urine Microscopic RBC (0-5) /HPF Urine Microscopic WBC (0-5) /HPF Ur Epithelial Cells (None Seen) /HPF Urine Bacteria (None Seen) /HPF Urine Culture Reflexed (NO) Urine Opiates Level NEGATIVE (NEGATIVE) Ur Methadone NEGATIVE (NEGATIVE) Urine Barbiturates POSITIVE A (NEGATIVE) Ur Phencyclidine (PCP) NEGATIVE (NEGATIVE) Urine Amphetamine NEGATIVE (NEGATIVE) U Benzodiazepine Level NEGATIVE (NEGATIVE) Urine Cocaine NEGATIVE (NEGATIVE) Urine Marijuana (THC) NEGATIVE (NEGATIVE) 12/05/24 Range/Units 10:11 WBC (3.98-10.04) x10^3/uL RBC (3.93-5.22) x10^6/uL Hgb (11.2-15.7) g/dL Hct (34.1-44.9) % MCV (79.4-94.8) fL MCH (25.6-32.2) pg MCHC (32.2-35.5) g/dL RDW (11.7-14.4) % Plt Count (182-369) x10^3/uL MPV (9.4-12.3) fL Gran % (34.0-71.1) % Immature Gran % (Auto) (0.001-0.429) % Nucleat RBC Rel Count (0.00-0.2) % Eos # (Auto) (0.04-0.36) x10^3/uL Immature Gran # (Auto) (0.001-0.031) x10^3u/L Absolute Lymphs (auto) (1.18-3.74) x10^3/uL Absolute Monos (auto) (0.24-0.86) x10^3/uL Absolute Nucleated RBC (0.00-0.012) x10^3u/L Lymphocytes % (19.3-51.7) % Monocytes % (4.7-12.5) % Eosinophils % (0.7-5.8) % Basophils % (0.1-1.2) % Absolute Granulocytes (1.56-6.13) x10^3/uL Basophils # (0.01-0.08) x10^3/uL Sodium (135-145) mmol/L Potassium (3.5-5.1) mmol/L Chloride (98-107) mmol/L Carbon Dioxide (22-30) mmol/L Anion Gap (5-15) MEQ/L BUN (7-17) mg/dL Creatinine (0.52-1.04) mg/dL Estimated GFR ML/MIN Glucose (74-106) mg/dL Calcium (8.4-10.2) mg/dL Urine Color Yellow (Yellow) Urine Appearance Clear (Clear) Urine pH 7.0 (4.6-8.0) Ur Specific [place] 1.020 (1.005-1.030) Urine Protein Negative (Negative) Urine Glucose (UA) Negative (Negative) mg/dL Urine Ketones Negative (Negative) Urine Blood Negative (Negative) Urine Nitrite Negative (Negative) Urine Bilirubin Negative (Negative) Urine Urobilinogen 0.2 (0.2) mg/dL Ur Leukocyte Esterase Trace A (Negative) U Hyaline Cast (Auto) NONE SEEN (0-2) /LPF Urine Microscopic RBC 0-2 (0-5) /HPF Urine Microscopic WBC 3-5 (0-5) /HPF Ur Epithelial Cells Moderate A (None Seen) /HPF Urine Bacteria Few A (None Seen) /HPF Urine Culture Reflexed NO (NO) Urine Opiates Level (NEGATIVE) Ur Methadone (NEGATIVE) Urine Barbiturates (NEGATIVE) Ur Phencyclidine (PCP) (NEGATIVE) Urine Amphetamine (NEGATIVE) U Benzodiazepine Level (NEGATIVE) Urine Cocaine (NEGATIVE) Urine Marijuana (THC) (NEGATIVE) - Progress Progress: improved, re-examined Air Movement: good Progress Note: 12/05/24 11:51 My medical decision making of the assignment of moderate complexity to this pat ient's medical issue today is based on review of the patient's past medical history, review of the patient's medication list, reviewed patient drug allergy list, history present illness and physical findings on examination. The workup in this patient includes CT scan of the head, providing the patient with intramuscular dose of Dilaudid, Benadryl, Toradol, and Compazine. In addition I ordered urinalysis, CBC and a BMP. Differential diagnosis includes but is not limited to migraine headache, urinary tract infection, dehydration, acute intracranial abnormality, electrolyte abnormality, anemia 12/05/24 11:57 I interpreted the patient's laboratory data results. Based on the laboratory data results, there are no acute, emergent medical issues. CT scan of the head without contrast was interpreted by the radiologist and I reviewed the impression. The impression states normal CT scan of head without contrast. Blood Culture(s) Obtained: No Antibiotics given: No Counseled pt/family regarding: lab results, diagnosis, need for follow-up, rad results Medical Desision Making - Independent Historian Additional History obtained from: Relative/friend - Diagnostic Testing Diagnostic test were ordered, analyzed, and reviewed by me: Yes Radiological Interpretation: Reviewed by me, Teleradiologist Report - Risk of complications Low Risk: Low risk of morbidity from additional dx testing or treatment - Departure Departure Disposition: Home Clinical Impression: Migraine headache Condition: Stable Critical Care Time: No Referrals: GEORGE HOFF MD [Primary Care Provider] - Follow up/PCP as directed Additional Instructions: Drink plenty of fluids. Take all your medications as prescribed. Call your primary care providers including your neurologist, today, 12/05/2024, to make arrangements for follow-up appointment for further evaluation management including making any changes to your medications as indicated.
[2024-12-05 09:50] VITALS: TEMP 97.7
[2024-12-05 10:52] VITALS: O2SAT 100
[2024-12-05 10:55] LABS: Appearance Clear (Clear); Bacteria Few /HPF (None Seen); Bilirubin Negative (Negative); Blood Negative (Negative); Epithelial Cells Moderate /HPF (None Seen); Glucose, Urine Negative (Negative); Hyaline Casts NONE SEEN /LPF (0-2); Ketones Negative (Negative); Leukocyte Esterase Trace (Negative); Nitrite Negative (Negative); Protein,Urine Dip Negative (Negative); RBC 0-2 /HPF (0-5); Urobilinogen 0.2 mg/dL (0.2)
[2024-12-05 11:04] LABS: Absolute Neutrophil Ct (ANC) 4.31 x10^3/uL (1.56-6.13); BASOPHIL % 0.5 % (0.1-1.2); Basophil (Absolute #) 0.04 x10^3/uL (0.01-0.08); Eosinophil % 0.8 % (0.7-5.8); Eosinophil (Absolute #) 0.06 x10^3/uL (0.04-0.36); Hematocrit 42.9 % (34.1-44.9); Hemoglobin 13.8 g/dL (11.2-15.7); IMMATURE GRAN # 0.02 x10^3u/L (0.001-0.031); IMMATURE GRAN % 0.3 % (0.001-0.429); Lymphocyte (Absolute #) 2.76 x10^3/uL (1.18-3.74); Lymphocytes % 35.8 % (19.3-51.7); Mean Cell Volume 93.3 fL (79.4-94.8); Mean Corpuscular Hgb Concent. 32.2 g/dL (32.2-35.5); Mean Platelet Volume 9.8 fL (9.4-12.3); Monocyte (Absolute #) 0.52 x10^3/uL (0.24-0.86); Monocytes % 6.7 % (4.7-12.5); Neutrophil % 55.9 % (34.0-71.1); Platelet Count 250 x10^3/uL (182-369); Red Cell Distribution Width 13.7 % (11.7-14.4); White Blood Count 7.7 x10^3/uL (3.98-10.04)
[2024-12-05 11:11] LABS: Amphetamine,Urine NEGATIVE (NEGATIVE); Barbiturate,Urine POSITIVE (NEGATIVE); Benzodiazepine,Urine NEGATIVE (NEGATIVE); Cocaine,Urine NEGATIVE (NEGATIVE); Methadone,Urine NEGATIVE (NEGATIVE); Opiate,Urine NEGATIVE (NEGATIVE); PCP,Urine NEGATIVE (NEGATIVE); THC,Urine NEGATIVE (NEGATIVE)
[2024-12-05 11:17] LABS: ANION GAP 13.5 MEQ/L (5-15); Calcium 9.5 mg/dL (8.4-10.2); Creatinine 1 0.76 mg/dL (0.52-1.04); Potassium 3.9 mmol/L (3.5-5.1)
[2024-12-05] MEDS ORDERED: TORAdol 30 mg Injection ONE (11:30)
[2024-12-05] MEDS ORDERED: BENADRYL 50 MG/ML ONE (11:30)
[2024-12-05] MEDS ORDERED: Hydromorphone 1 mg/ml Injection ONE (11:34)
[2024-12-05] MEDS ORDERED: Compazine 10 MG/2 ML ONE (11:34)
[2024-12-05] MEDS: BENADRYL 50 MG/ML IM ONE (11:41)
[2024-12-05] MEDS: Compazine 10 MG/2 ML IM ONE (11:42)
--- NOTE | 2024-12-05 11:43 | XRAY ---
Indication: Severe headache. History of migraines. Multiple contiguous axial images obtained through the head without contrast. Normal appearing brain parenchyma, ventricles, and bony calvarium. Presents paranasal sinuses and mastoid air cells are clear. Impression: Continued normal CT head without contrast exam compared to ER exam October 27, 2024.
[2024-12-05] MEDS: Hydromorphone 1 mg/ml Injection IM ONE (11:44)
[2024-12-05] MEDS: TORAdol 30 mg Injection IM ONE (11:47)
[2024-12-05 12:01] VITALS: BP 120/78; PULSE 67; RESP 18
== END 2024-12-05 12:33 | disposition home or self-care (01) ==
LOC: ED 09:37
DX: G43.909 Migraine, unspecified, not intractable, without status migrainosus (principal); I10 Essential (primary) hypertension; Z79.899 Other long term (current) drug therapy; Z59.19 Other inadequate housing
CPT/HCPCS: 36415; 70450; 80048; 80177; 80307; 81001; 85025; 96372; 99284; J1171; J1200; J1885

== ENCOUNTER 2024-12-24 15:02 | Emergency (ER) | payer OTHER ==
[2024-12-24 15:25] VITALS: TEMP 98
--- NOTE | 2024-12-24 15:25 | ERPHSYRPT ---
- History of Present Illness Time Seen by Provider: 12/24/24 15:24 Source: patient Exam Limitations: no limitations Physician History: Patient presents with severe, immobilizing bilateral hip pain, worse on the left side. They report the pain is located on the lateral aspect of the hip. They endorse a palpable "knot" in the area of maximal tenderness. The patient states the pain was so severe in the past that it nearly caused a seizure. Pain is exacerbated by resisted hip abduction. Method of Injury: unknown Occurred: last week Quality: constant, stabbing Severity of Pain-Max: severe Severity of Pain-Current: severe Lower Extremities Pain: hip: bilateral Modifying Factors: Improves With: rest. Worsens With: movement Associated Symptoms: none Allergies/Adverse Reactions: Penicillins Allergy (Verified 12/24/24 15:13) Sulfa (Sulfonamide Antibiotics) Allergy (Verified 12/24/24 15:13) Home Medications: Fexofenadine HCl [Kassi Allergy] 1 tab PO DAILY 11/02/23 [History] Levetiracetam [Keppra] 1,500 mg PO BID 11/02/23 [History] Montelukast Sodium 10 mg [Singulair 10 MG] 10 mg PO DAILY 11/02/23 [History] EPINEPHrine [Epipen 0.3 MG] 0.3 mg IJ Q12H PRN PRN 02/29/24 [History] Quetiapine Fumarate 100 mg [Seroquel 100 MG] 100 mg PO HS 02/29/24 [History] Rizatriptan Benzoate [Rizatriptan] 10 mg PO UD PRN 02/29/24 [History] Gabapentin [Neurontin ] 300 mg PO DAILY 05/21/24 [History] Topiramate 100 mg PO BID 05/21/24 [History] Gabapentin 600 mg PO HS 12/05/24 [History] Sertraline HCl 50 mg [Zoloft 50 mg Tablet] 50 mg PO DAILY 12/05/24 [History] Simvastatin 10 mg [Zocor 10MG] 10 mg PO DAILY 12/05/24 [History] Hx Tetanus, Diphtheria Vaccination/Date Given: (a year or 2 ago) Hx Influenza Vaccination/Date Given: Yes Hx Pneumococcal Vaccination/Date Given: No Travel Risk - Emerging Infectious Disease Are you exhibiting symptoms associated with any current EIDs: No - Review of Systems All Other Systems: Reviewed and Negative - Past Medical History Pertinent Past Medical History: Yes Neurological History: Migraines, Seizures ENT History: No Pertinent History Cardiac History: Hypertension Respiratory History: Asthma Endocrine Medical History: No Pertinent History Musculoskeletal History: Osteoarthritis, Rheumatoid Arthritis GI Medical History: Crohns Disease, GERD History: No Pertinent History Psycho-Social History: Anxiety, Attention Deficit Disorder, Bipolar, Depression Female Reproductive Disorders: Endometriosis Other Medical History: CHRONIC MIGRAINES. OA IN SPINE AND RA IN THE KNEE. 2 BACK SURGERIES. - Past Surgical History Past Surgical History: Yes Neuro Surgical History: No Pertinent History Cardiac: No Pertinent History Respiratory: No Pertinent History Gastrointestinal: No Pertinent History Genitourinary: No Pertinent History Musculoskeletal: Other Female Surgical History: Hysterectomy Other Surgical History: sinus, left elbow, right wrist, breast reduction - Female History Hx Last Menstrual Period: 2007 - Social History Smoking Status: Never smoker Exposure to second hand smoke: No Drug Use: none Patient Lives Alone: No - Social Determinants of Health Will the patient participate in the screening: Yes Do you worry about a steady place to live?: No In the past 12 months,have you had to go without utilities?: No Transportation Issues: No Has anyone in your support network made you feel unsafe?: No Have you or anyone in your house had to go w/o enough food: No Comment: requesting assistance with mold issue - Nursing Vital Signs Nursing Vital Signs: Initial Vital Signs Temperature 98 F 12/24/24 15:14 Pulse Rate 89 12/24/24 15:14 Respiratory Rate 18 12/24/24 15:14 Blood Pressure 165/133 12/24/24 15:14 O2 Sat by Pulse Oximetry 99 12/24/24 15:14 Pain Scale Pain Intensity 9 - Physical Exam General Appearance: no apparent distress, obese Hips Exam: bilateral: normal inspection, normal range of motion, soft tissue tenderness (greater troch), other (painful resisted abduction, neg stinchfield, neg log roll, neg scour) Neuro/Tendon Exam: normal sensation, normal motor functions, normal tendon functions Mental Status Exam: alert, 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, cooperative Skin Exam: normal color, warm, dry, No rash SpO2 Interpretation: normal O2 Delivery: Room Air - Course Nursing assessment & vital signs reviewed: Yes - Radiology Exams Hip X-ray Interpretation: Interpreted by me, No Fracture Ordered Tests: Active Orders 24 hr Category Date Time Status HIP SUSAN (4V) INCL PELV IF DONE Stat Exams 12/24/24 15:23 Taken Medication Summary Discontinued Medications Generic Name Dose Route Start Last Admin Trade Name Ck PRN Reason Stop Dose Admin Methylprednisolone Acetate 80 mg 12/24/24 15:52 Methylprednisolone Acetate 80 Mg/Ml Vial IM 12/24/24 15:53 STAT ONE - Progress Progress Note: 12/24/24 15:59 Differential Diagnosis: -Trochanteric Bursitis (possible due to pain exacerbated by resisted hip abduction and tenderness over the lateral hip) Due to the chief complaint, the following diagnoses were also considered but the signs/symptoms, physical exam, and data points are not consistent with any of the following: Hip fracture, avascular necrosis, septic arthritis, osteoarthritis, rheumatoid arthritis, sciatica, lumbar radiculopathy, psoas bursitis, iliopsoas tendinitis, meralgia paresthetica, stress fracture, bone tumor, infection, inflammatory arthritis, referred pain from the spine, nerve i mpingement, muscle strain, ligament sprain. Rationale for Diagnosis and Decision Making: Given the patient's history, physical exam findings of tenderness to palpation over the left lateral hip and positive pain with resisted hip abduction, trochanteric bursitis is suspected. X-ray was negative for acute findings. Negative for abdominal pain, dysuria, or hematuria, which helps rule out other potential causes of hip pain. The plan is for the patient to follow up with Dr. Eaton tomorrow. A steroid taper was prescribed to manage pain until the follow-up appointment, at which time a possible steroid injection can be discussed. Counseled pt/family regarding: diagnosis, need for follow-up, rad results Medical Desision Making - Diagnostic Testing Diagnostic test were ordered, analyzed, and reviewed by me: Yes Radiological Interpretation: Interpreted by me - Risk of complications The pt has a mod risk of morbidity or mortality based on: Need for prescription drug management - Departure Departure Disposition: Home Clinical Impression: Trochanteric bursitis of both hips Condition: Good Critical Care Time: No Referrals: GEORGE HOFF MD [Primary Care Provider] - Follow up/PCP as directed Instructions: Hip Bursitis Exercises, Bursitis - ED discharge instructions Prescriptions: Ketorolac Trometh 10 mg Tab [TORAdol 10 MG TABLET] 10 mg PO TID PRN 7 Days #21 tablet PRN Reason: Pain
[2024-12-24] MEDS ORDERED: Depo-Medrol 80 MG/ML ONE (15:57)
[2024-12-24] MEDS: Depo-Medrol 80 MG/ML IM ONE (15:58)
[2024-12-24 16:08] VITALS: BP 126/77; PULSE 73; RESP 22; O2SAT 96
--- NOTE | 2024-12-24 19:20 | XRAY ---
Indication: Bilateral hip pain. Comparison: None AP pelvis and 2 views left/right hips demonstrates mild bilateral lumbosacral junction degenerative facet hypertrophy and a few pelvic phleboliths. No other bony, articular, or soft tissue abnormalities.
== END 2024-12-24 16:14 | disposition home or self-care (01) ==
LOC: ED 15:02
DX: M70.62 Trochanteric bursitis, left hip (principal); M70.61 Trochanteric bursitis, right hip; I10 Essential (primary) hypertension; Z79.899 Other long term (current) drug therapy; Z59.19 Other inadequate housing
CPT/HCPCS: 73522; 96372; 99283

== ENCOUNTER 2025-01-03 13:24 | Day surgery (SDC) | payer OTHER ==
[2025-01-03] MEDS ORDERED: LIDOCAINE HCL 2% 100 MG/5 ML IJ ONE (13:25)
[2025-01-03] MEDS ORDERED: Depo-Medrol 40 MG/ML IM ONE (13:25)
[2025-01-03] MEDS ORDERED: propofoL IV ONE (15:52)
--- NOTE | 2025-01-03 16:33 | XRAY ---
Indication: Bilateral L4-S1 MBB. Intraoperative fluoroscopy provided for 11 seconds. Single digital spot image submitted for interpretation demonstrates posterior needle tips projecting over expected left and right L4-S1 nerve roots. Correlate with intraoperative findings/report.
--- NOTE | 2025-01-04 19:24 | XRAY ---
11 seconds of fluoroscopy was used in surgery for a bilateral L4-S1 MBB.
== END 2025-01-03 16:20 | disposition home or self-care (01) ==
LOC: SDC-PAIN 13:24
PROVIDERS: ATTEND Psychiatry & Neurology Pain Medicine
DX: M47.817 Spondylosis without myelopathy or radiculopathy, lumbosacral region (principal)
CPT/HCPCS: 64493; 64494; 72020; J2704